=== PATIENT | female | born 1960 | race Caucasian/White ===

== ENCOUNTER 2016-10-11 08:42 | Inpatient (IN) | payer BC ==
[~2016-10-11] VITALS: Ht 149.9 cm; Wt 57.3 kg
[2016-10-11 09:35] LABS: Hematocrit 36.8 % (36.0-46.0); Hemoglobin 12.4 g/dL (12.2-16.2); Mean Corpuscular Hemoglobin 33.8 pg (28.0-32.0); Mean Corpuscular Hgb Conc. 33.7 g/dL (32.0-36.0); Mean Corpuscular Volume 100.2 fL (80.0-100.0); Mean Platelet Volume 7.8 fL (7.4-10.4); Platelet Count (auto) 206 10^3/uL (140-450); Red Cell Distribution Width 13.6 % (11.6-16.0); SUSPECT VIEW TRANSMISSION; White Blood Cell 11.3 10^3/uL (4.4-10.8)
[2016-10-11 09:47] LABS: Metamyelocytes % 0; Myelocytes % 0; Promyelocytes % 0; Reactive Lymphocytes 0
[2016-10-11 09:58] LABS: Albumin 3.1 g/dL (3.4-5.0); BUN/Creatinine Ratio 17.8; Calcium 8.2 mg/dL (8.5-10.1); Potassium 3.8 mmol/L (3.5-5.1); Total Protein 7.2 g/dL (6.4-8.2)
[2016-10-11 10:12] LABS: Partial Thromboplastin Time 26.1 sec (22.64-33.71); Prothrombin Time 11.9 sec (9.37-12.3)
[2016-10-11 10:13] LABS: INR 1.16 (0.9-1.15)
[2016-10-11] MEDS ORDERED: PANTOPRAZOLE SODIUM 40 MG/10 ML VIAL IV ONE (10:15)
[2016-10-11] MEDS ORDERED: ASPirin 81 mg TAB PO ONE (10:15)
[2016-10-11 10:43] LABS: Platelet Estimate Adequate
[2016-10-11] MEDS ORDERED: DEXTROSE (50%) 50ML SYRG IV PRN (13:15)
[2016-10-11] MEDS ORDERED: cefTRIAXone 1GM/50ML D5W 50 ML IV ONE (13:30)
[2016-10-11] MEDS ORDERED: TEMAZEPAM 15 MG CAP PO PRN (13:30)
[2016-10-11] MEDS ORDERED: ACETAMINOPHEN 325 MG TAB PO PRN (13:30)
[2016-10-11] MEDS ORDERED: NITROGLYCERIN 0.4 MG SL TAB SL PRN (13:30)
[2016-10-11] MEDS ORDERED: MORPHINE SULF INJ 2 MG/ML SYRINGE 1ML IV PRN (13:30)
[2016-10-11] MEDS ORDERED: ONDANSETRON HCL 4 MG/2 ML VIAL IV PRN (13:30)
[2016-10-11] MEDS: SODIUM CHLORIDE 0.9% 1,000 ML IV SCH ×2 (13:43→22:29)
[2016-10-11] MEDS: metroNIDAZOLE 500MG/100ML 100 ML IV SCH ×2 (14:02→22:29)
[2016-10-11 14:33] LABS: Urine Color Yellow (Yellow); Urine Glucose Normal (Normal); Urine Mucus FEW (None Seen); Urine Nitrite Negative (Negative); Urine RBC <1 /hpf (0 - 4); Urine Squamous Epithelial Cell MOD /hpf (<5)
[2016-10-11 14:35] LABS: Urine Blood 1+ /uL (Negative); Urine Ketone 1+ (Negative)
[2016-10-11 14:36] LABS: Urine Bilirubin Negative (Negative)
[2016-10-11] MEDS: ACCU-CHEK COMFORT CURVE STRIP VI SCH ×2 (17:00→22:00)
[2016-10-11] MEDS: InsuLIN REG 1unit/0.01ml Soln (100units/ml) SC SCH ×2 (17:00→22:00)
[2016-10-11] MEDS: Boost Glucose Control 8 Ounces PO SCH (18:00)
[2016-10-11] MEDS ORDERED: ASPI81CH43 PO (19:02)
[2016-10-11] MEDS ORDERED: ESTR0.3T PO (19:02)
[2016-10-11] MEDS ORDERED: CHOL500023 PO (19:02)
[2016-10-11] MEDS ORDERED: METO25TA62 PO (19:02)
[2016-10-11] MEDS ORDERED: CYAN1TAB14 PO (19:02)
[2016-10-11 22:00] VITALS: BP 121/74
[2016-10-11] MEDS: FAMOTIDINE 20 MG TAB PO SCH (22:29)
[2016-10-11] MEDS: ATORVASTATIN 20 MG TAB PO SCH (22:29)
[2016-10-12 04:46] VITALS: BP 110/51
[2016-10-12] MEDS: metroNIDAZOLE 500MG/100ML 100 ML IV SCH ×3 (05:11→21:37)
[2016-10-12] MEDS: SODIUM CHLORIDE 0.9% 1,000 ML IV SCH ×3 (05:12→22:56)
[2016-10-12] MEDS: ACCU-CHEK COMFORT CURVE STRIP VI SCH ×4 (06:10→21:56)
[2016-10-12] MEDS: InsuLIN REG 1unit/0.01ml Soln (100units/ml) SC SCH ×4 (06:10→21:56)
[2016-10-12 06:14] LABS: Basophils # (auto) 0 uL; Basophils % (auto) 0.2 % (0.0-2.0); Eosinophils # (auto) 0 uL; Eosinophils % (auto) 0.3 % (0.0-7.0); Hematocrit 35.3 % (36.0-46.0); Hemoglobin 11.9 g/dL (12.2-16.2); Lymphocytes # (auto) 1.3 uL; Lymphocytes % (auto) 13.5 % (10.0-50.0); Mean Corpuscular Hemoglobin 33.5 pg (28.0-32.0); Mean Corpuscular Hgb Conc. 33.6 g/dL (32.0-36.0); Mean Corpuscular Volume 99.6 fL (80.0-100.0); Mean Platelet Volume 7.9 fL (7.4-10.4); Monocytes # (auto) 0.3 uL; Monocytes % (auto) 3.6 % (0.0-12.0); Neutrophils # (auto) 7.6 uL; Neutrophils % (auto) 82.4 % (37.0-80.0); Platelet Count (auto) 188 10^3/uL (140-450); Red Cell Distribution Width 13.6 % (11.6-16.0); White Blood Cell 9.3 10^3/uL (4.4-10.8)
[2016-10-12 06:41] LABS: Alkaline Phosphatase 66 U/L (45-117); Anion Gap 17 (5-15); Aspartate Aminotransferase 45 U/L (15-37); BUN/Creatinine Ratio 19.9; Bilirubin, Total 0.7 mg/dL (0.2-1.0); Blood Urea Nitrogen 28 mg/dL (7-18); Carbon Dioxide 22 mmol/L (21-32); Chloride 103 mmol/L (98-107); GFR African American 49 mL/min; GFR Non-African American 41 mL/min; Glucose 119 mg/dL (74-106); Potassium 3.3 mmol/L (3.5-5.1); Sodium 142 mmol/L (136-145); Total Protein 7.1 g/dL (6.4-8.2)
[2016-10-12] MEDS: Boost Glucose Control 8 Ounces PO SCH ×3 (08:00→18:15)
[2016-10-12] MEDS: cefTRIAXone 1GM/50ML D5W 50 ML IV SCH (08:41)
[2016-10-12 09:00] VITALS: BP 106/56
[2016-10-12] MEDS: FAMOTIDINE 20 MG TAB PO SCH ×2 (09:22→21:38)
[2016-10-12] MEDS: MULTIPLE VITAMIN TAB PO SCH (09:22)
[2016-10-12] MEDS: ASPirin-EC 81 mg tab PO SCH (09:22)
[2016-10-12] MEDS: MORPHINE SULF INJ 2 MG/ML SYRINGE 1ML IV PRN (09:26)
[2016-10-12 13:00] VITALS: BP 129/79
[2016-10-12 17:00] VITALS: BP 131/71
[2016-10-12] MEDS: ATORVASTATIN 20 MG TAB PO SCH (21:37)
[2016-10-12 22:00] VITALS: BP 126/81
[2016-10-13] MEDS: ACCU-CHEK COMFORT CURVE STRIP VI SCH ×4 (05:03→22:36)
[2016-10-13] MEDS: InsuLIN REG 1unit/0.01ml Soln (100units/ml) SC SCH ×4 (05:03→22:00)
[2016-10-13] MEDS: metroNIDAZOLE 500MG/100ML 100 ML IV SCH ×3 (05:04→22:35)
[2016-10-13] MEDS: SODIUM CHLORIDE 0.9% 1,000 ML IV SCH ×3 (05:05→19:56)
[2016-10-13 05:42] VITALS: BP 139/87
[2016-10-13 06:21] LABS: Basophils # (auto) 0 uL; Basophils % (auto) 0.3 % (0.0-2.0); Eosinophils # (auto) 0.1 uL; Eosinophils % (auto) 0.8 % (0.0-7.0); Hematocrit 30.7 % (36.0-46.0); Hemoglobin 10.3 g/dL (12.2-16.2); Lymphocytes # (auto) 0.9 uL; Lymphocytes % (auto) 11.1 % (10.0-50.0); Mean Corpuscular Hemoglobin 33.8 pg (28.0-32.0); Mean Corpuscular Hgb Conc. 33.6 g/dL (32.0-36.0); Mean Corpuscular Volume 100.6 fL (80.0-100.0); Mean Platelet Volume 8.3 fL (7.4-10.4); Monocytes # (auto) 0.5 uL; Monocytes % (auto) 5.5 % (0.0-12.0); Neutrophils # (auto) 6.7 uL; Neutrophils % (auto) 82.3 % (37.0-80.0); Platelet Count (auto) 160 10^3/uL (140-450); Red Cell Distribution Width 13.4 % (11.6-16.0); White Blood Cell 8.1 10^3/uL (4.4-10.8)
[2016-10-13 06:42] LABS: Albumin 2.5 g/dL (3.4-5.0); Anion Gap 13 (5-15); Blood Urea Nitrogen 12 mg/dL (7-18); Calcium 7.5 mg/dL (8.5-10.1); Carbon Dioxide 23 mmol/L (21-32); Chloride 103 mmol/L (98-107); Glucose 98 mg/dL (74-106); Sodium 139 mmol/L (136-145)
[2016-10-13 06:44] LABS: Aspartate Aminotransferase 38 U/L (15-37); BUN/Creatinine Ratio 12.9; GFR African American 80 mL/min; GFR Non-African American 66 mL/min
[2016-10-13 06:49] LABS: Alkaline Phosphatase 59 U/L (45-117); Bilirubin, Total 0.9 mg/dL (0.2-1.0); Total Protein 5.9 g/dL (6.4-8.2)
[2016-10-13 06:56] LABS: Potassium 2.8 mmol/L (3.5-5.1)
[2016-10-13 08:00] VITALS: BP 130/91
[2016-10-13] MEDS: Boost Glucose Control 8 Ounces PO SCH ×3 (08:00→18:15)
[2016-10-13 08:30] VITALS: BP 130/95
[2016-10-13] MEDS: cefTRIAXone 1GM/50ML D5W 50 ML IV SCH ×2 (09:00→19:52)
[2016-10-13] MEDS ORDERED: ADENOSINE 45 MG in GIVE UN-DILUTED 0 ML IV ONE (09:45)
[2016-10-13] MEDS: MULTIPLE VITAMIN TAB PO SCH (10:00)
[2016-10-13] MEDS: FAMOTIDINE 20 MG TAB PO SCH ×2 (10:00→22:35)
[2016-10-13] MEDS: ASPirin-EC 81 mg tab PO SCH (10:00)
[2016-10-13] MEDS ORDERED: POTASSIUM CHLORIDE 40 MEQ, LIDOCAINE 1% (LOCAL ANESTH.) 4 ML in SODIUM CHL 0.9% 250 ML IV ONE (10:30)
[2016-10-13 12:43] VITALS: BP 150/84
[2016-10-13 17:09] VITALS: BP 132/62
[2016-10-13 22:11] VITALS: BP 129/65
[2016-10-13] MEDS: ATORVASTATIN 20 MG TAB PO SCH (22:35)
[2016-10-14] MEDS ORDERED: guaiFENesin-DEXTROMETHORPHAN 5ML SYR PO PRN (00:45)
[2016-10-14 05:11] VITALS: BP 105/59
[2016-10-14] MEDS: ACCU-CHEK COMFORT CURVE STRIP VI SCH ×4 (05:40→21:58)
[2016-10-14] MEDS: InsuLIN REG 1unit/0.01ml Soln (100units/ml) SC SCH ×4 (05:40→22:00)
[2016-10-14] MEDS: metroNIDAZOLE 500MG/100ML 100 ML IV SCH ×3 (05:41→21:58)
[2016-10-14 06:47] LABS: Basophils # (auto) 0 uL; Basophils % (auto) 0.2 % (0.0-2.0); Eosinophils # (auto) 0.2 uL; Eosinophils % (auto) 2.3 % (0.0-7.0); Hematocrit 29.7 % (36.0-46.0); Hemoglobin 10.4 g/dL (12.2-16.2); Lymphocytes # (auto) 1.1 uL; Lymphocytes % (auto) 15.7 % (10.0-50.0); Mean Corpuscular Hemoglobin 35.1 pg (28.0-32.0); Mean Corpuscular Volume 100.5 fL (80.0-100.0); Mean Platelet Volume 8.4 fL (7.4-10.4); Monocytes # (auto) 0.9 uL; Monocytes % (auto) 11.8 % (0.0-12.0); Neutrophils # (auto) 5.1 uL; Platelet Count (auto) 169 10^3/uL (140-450); Red Cell Distribution Width 13.4 % (11.6-16.0); White Blood Cell 7.3 10^3/uL (4.4-10.8)
[2016-10-14 07:13] LABS: Albumin 2.3 g/dL (3.4-5.0); BUN/Creatinine Ratio 9.9; Calcium 7.1 mg/dL (8.5-10.1)
[2016-10-14 07:15] LABS: Bilirubin, Total 0.6 mg/dL (0.2-1.0); Total Protein 5.4 g/dL (6.4-8.2)
[2016-10-14 07:25] LABS: Potassium 2.7 mmol/L (3.5-5.1)
[2016-10-14 08:00] VITALS: BP 113/51
[2016-10-14] MEDS: Boost Glucose Control 8 Ounces PO SCH ×3 (08:00→18:21)
[2016-10-14] MEDS: SODIUM CHLORIDE 0.9% 1,000 ML IV SCH ×2 (08:02→20:00)
[2016-10-14 08:43] VITALS: BP 113/51
[2016-10-14] MEDS: cefTRIAXone 1GM/50ML D5W 50 ML IV SCH (09:00)
[2016-10-14] MEDS: ASPirin-EC 81 mg tab PO SCH (10:04)
[2016-10-14] MEDS: MULTIPLE VITAMIN TAB PO SCH (10:04)
[2016-10-14] MEDS: FAMOTIDINE 20 MG TAB PO SCH ×2 (10:04→21:58)
[2016-10-14] MEDS ORDERED: POTASSIUM CHLORIDE 40 MEQ, LIDOCAINE 1% (LOCAL ANESTH.) 4 ML in SODIUM CHL 0.9% 250 ML IV ONE (10:45)
[2016-10-14 11:23] VITALS: BP 127/59
[2016-10-14 16:22] VITALS: BP 117/62
[2016-10-14 21:46] VITALS: BP 129/69
[2016-10-14] MEDS: ATORVASTATIN 20 MG TAB PO SCH (21:58)
[2016-10-15] MEDS: SODIUM CHLORIDE 0.9% 1,000 ML IV SCH ×2 (04:35→17:51)
[2016-10-15 04:36] VITALS: BP 116/67
[2016-10-15] MEDS: InsuLIN REG 1unit/0.01ml Soln (100units/ml) SC SCH ×4 (06:22→22:11)
[2016-10-15] MEDS: metroNIDAZOLE 500MG/100ML 100 ML IV SCH ×3 (06:22→21:56)
[2016-10-15] MEDS: ACCU-CHEK COMFORT CURVE STRIP VI SCH ×4 (06:22→22:13)
[2016-10-15 06:43] LABS: Hematocrit 28.7 % (36.0-46.0); Hemoglobin 9.7 g/dL (12.2-16.2)
[2016-10-15 06:49] LABS: Partial Thromboplastin Time 26.5 sec (22.64-33.71); Prothrombin Time 12.2 sec (9.37-12.3)
[2016-10-15 07:02] LABS: BUN/Creatinine Ratio 5.5; Calcium 7.5 mg/dL (8.5-10.1); Potassium 3.3 mmol/L (3.5-5.1)
[2016-10-15 07:07] LABS: INR 1.18 (0.9-1.15)
[2016-10-15 08:00] VITALS: BP 133/65
[2016-10-15] MEDS ORDERED: SODIUM CHLORIDE LOCK 10 ML ONE (08:18)
[2016-10-15] MEDS ORDERED: diphenhdrAMINE HCL 50 MG/1 ML VL ONE (08:19)
[2016-10-15] MEDS ORDERED: fentaNYL CITRATE 100 MCG/2 ML VL ONE (08:19)
[2016-10-15] MEDS ORDERED: LIDOCAINE VISCOUS 2% 15ML UD ONE (08:19)
[2016-10-15] MEDS ORDERED: MIDAZOLAM HCL 5 MG/ML-1ML VIAL ONE (08:19)
[2016-10-15 08:43] VITALS: BP 133/65
[2016-10-15] MEDS: Boost Glucose Control 8 Ounces PO SCH ×2 (08:46→12:00)
[2016-10-15] MEDS: ASPirin-EC 81 mg tab PO SCH (08:46)
[2016-10-15] MEDS: cefTRIAXone 1GM/50ML D5W 50 ML IV SCH (08:46)
[2016-10-15] MEDS: MULTIPLE VITAMIN TAB PO SCH (08:46)
[2016-10-15] MEDS: FAMOTIDINE 20 MG TAB PO SCH (08:47)
[2016-10-15] MEDS: HYDROcodone-ACET 5/325MG TAB PO PRN ×2 (10:51→20:10)
[2016-10-15 13:24] VITALS: BP 113/75
[2016-10-15] MEDS ORDERED: LIDOCAINE VISCOUS 2% 15ML UD MT ONE (16:18)
[2016-10-15] MEDS ORDERED: fentaNYL CITRATE 100 MCG/2 ML VL IV ONE ×2 (16:21→16:23)
[2016-10-15] MEDS ORDERED: MIDAZOLAM HCL 5 MG/ML-1ML VIAL IV ONE ×4 (16:21→16:27)
[2016-10-15] MEDS: SUCRALFATE 1 GM/10 ML ORAL SUSP PO SCH ×2 (17:50→21:56)
[2016-10-15] MEDS: Boost Breeze 8 Ounces PO SCH (17:51)
[2016-10-15] MEDS: ATORVASTATIN 20 MG TAB PO SCH (21:56)
[2016-10-15] MEDS: PANTOPRAZOLE SODIUM 40 MG/10 ML VIAL IV SCH (21:56)
[2016-10-15 22:16] VITALS: BP 115/78
[2016-10-16] MEDS: MORPHINE SULF INJ 2 MG/ML SYRINGE 1ML IV PRN ×2 (04:26→18:19)
[2016-10-16] MEDS: SODIUM CHLORIDE 0.9% 1,000 ML IV SCH (04:39)
[2016-10-16 05:00] VITALS: BP 122/72
[2016-10-16] MEDS: SUCRALFATE 1 GM/10 ML ORAL SUSP PO SCH ×4 (06:03→21:34)
[2016-10-16] MEDS: metroNIDAZOLE 500MG/100ML 100 ML IV SCH (06:04)
[2016-10-16 06:10] LABS: Hematocrit 31.5 % (36.0-46.0); Mean Corpuscular Hemoglobin 35.5 pg (28.0-32.0); Mean Corpuscular Volume 101.4 fL (80.0-100.0); Mean Platelet Volume 8.5 fL (7.4-10.4); Platelet Count (auto) 340 10^3/uL (140-450); Red Cell Distribution Width 13.5 % (11.6-16.0); SUSPECT VIEW TRANSMISSION; White Blood Cell 5.4 10^3/uL (4.4-10.8)
[2016-10-16] MEDS: ACCU-CHEK COMFORT CURVE STRIP VI SCH ×2 (06:19→13:34)
[2016-10-16] MEDS: InsuLIN REG 1unit/0.01ml Soln (100units/ml) SC SCH ×2 (06:22→11:30)
[2016-10-16 06:23] LABS: BUN/Creatinine Ratio 6.3; Calcium 7.5 mg/dL (8.5-10.1); Magnesium 1.1 mg/dL (1.6-2.6)
[2016-10-16 06:24] LABS: Metamyelocytes % 0; Myelocytes % 0; Promyelocytes % 0; Reactive Lymphocytes 0
[2016-10-16 06:37] LABS: Potassium 2.9 mmol/L (3.5-5.1)
[2016-10-16 06:56] LABS: INR 1.17 (0.9-1.15)
[2016-10-16 07:52] LABS: Platelet Estimate Adequate
[2016-10-16 07:53] LABS: Macrocytosis Slight
[2016-10-16 08:00] VITALS: BP 128/80
[2016-10-16] MEDS: MULTIPLE VITAMIN TAB PO SCH (09:28)
[2016-10-16] MEDS: PANTOPRAZOLE SODIUM 40 MG/10 ML VIAL IV SCH (09:29)
[2016-10-16] MEDS: cefTRIAXone 1GM/50ML D5W 50 ML IV SCH (09:29)
[2016-10-16] MEDS: Boost Breeze 8 Ounces PO SCH ×3 (09:29→18:19)
[2016-10-16 09:59] VITALS: BP 128/80
[2016-10-16] MEDS ORDERED: POTASSIUM CHL 20 Meq TABLET PO ONE (12:45)
[2016-10-16] MEDS ORDERED: POTASSIUM CHLORIDE 40 MEQ, LIDOCAINE 1% (LOCAL ANESTH.) 4 ML in SODIUM CHL 0.9% 250 ML IV ONE (13:15)
[2016-10-16] MEDS: MAGNESIUM SULFATE 1GM/100ML 100 ML IV SCH ×4 (13:35→18:18)
[2016-10-16 14:56] VITALS: BP 126/77
[2016-10-16 15:01] LABS: Albumin 2.2 g/dL (3.4-5.0)
[2016-10-16 15:03] LABS: Bilirubin, Total 0.3 mg/dL (0.2-1.0); Total Protein 5.4 g/dL (6.4-8.2)
[2016-10-16] MEDS ORDERED: METOPROLOL TARTRATE 25 MG TAB PO ONE (15:15)
[2016-10-16 15:18] LABS: Bilirubin, Direct 0.2 mg/dL (0-0.2)
[2016-10-16 17:23] VITALS: BP 150/76
[2016-10-16 21:30] VITALS: BP 151/89
[2016-10-16] MEDS: ATORVASTATIN 20 MG TAB PO SCH (21:34)
[2016-10-16] MEDS: PANTOPRAZOLE 40 MG TAB PO SCH (21:35)
[2016-10-16] MEDS: METOPROLOL TARTRATE 25 MG TAB PO SCH (21:35)
[2016-10-17 05:00] VITALS: BP 145/78
[2016-10-17] MEDS: SUCRALFATE 1 GM/10 ML ORAL SUSP PO SCH ×2 (06:33→12:37)
[2016-10-17 06:48] LABS: BUN/Creatinine Ratio 3.1; Calcium 7.7 mg/dL (8.5-10.1); Magnesium 1.9 mg/dL (1.6-2.6); Potassium 3.4 mmol/L (3.5-5.1)
[2016-10-17 08:00] VITALS: BP 115/64
[2016-10-17 10:00] VITALS: BP 115/64
[2016-10-17] MEDS: Boost Breeze 8 Ounces PO SCH ×2 (10:28→12:37)
[2016-10-17] MEDS: METOPROLOL TARTRATE 25 MG TAB PO SCH (10:28)
[2016-10-17] MEDS: MULTIPLE VITAMIN TAB PO SCH (10:29)
[2016-10-17] MEDS: PANTOPRAZOLE 40 MG TAB PO SCH (10:29)
[2016-10-17] MEDS ORDERED: PANT40T PO (11:15)
[2016-10-17] MEDS ORDERED: SUC1LQ PO (11:15)
[2016-10-17 12:23] VITALS: BP 131/67
[2016-10-17 14:18] VITALS: BP 131/67
== END 2016-10-17 14:46 | disposition home or self-care (01) | DRG 391 ==
LOC: EDBD 08:42 → ER 08:42 → TELE 08:43 → TELE-E-ADS 15:06 → TELE-EAST 20:23
PROVIDERS: ADMIT Internal Medicine; ATTEND Internal Medicine
PROC: 0DB58ZX Excision of Esophagus, Via Natural or Artificial Opening Endoscopic, Diagnostic (ICD-10-PCS; principal; 2016-10-15 16:13)
DX: K20.9 Esophagitis, unspecified (principal); N17.0 Acute kidney failure with tubular necrosis; E44.0 Moderate protein-calorie malnutrition; I24.9 Acute ischemic heart disease, unspecified; N18.4 Chronic kidney disease, stage 4 (severe); R07.89 Other chest pain; I25.10 Atherosclerotic heart disease of native coronary artery without angina pectoris; E87.6 Hypokalemia; E83.51 Hypocalcemia; K29.60 Other gastritis without bleeding; E83.42 Hypomagnesemia; K29.80 Duodenitis without bleeding; K44.9 Diaphragmatic hernia without obstruction or gangrene; F14.10 Cocaine abuse, uncomplicated; K76.0 Fatty (change of) liver, not elsewhere classified; I12.9 Hypertensive chronic kidney disease with stage 1 through stage 4 chronic kidney disease, or unspecified chronic kidney disease; E86.0 Dehydration; Z90.49 Acquired absence of other specified parts of digestive tract; Z90.710 Acquired absence of both cervix and uterus; I25.2 Old myocardial infarction; Z83.3 Family history of diabetes mellitus; Z82.49 Family history of ischemic heart disease and other diseases of the circulatory system; Z80.0 Family history of malignant neoplasm of digestive organs; Z68.25 Body mass index [BMI] 25.0-25.9, adult
CPT/HCPCS: 36415; 71010; 74176; 76700; 80048; 80053; 80061; 80076; 81001; 82962; 83036; 83735; 84132; 84484; 85007; 85014; 85018; 85025; 85027; 85610; 85730; 87040; 87045; 87086; 87493; 87899; 93005; 93017; 94761; 96365; 96375; C9113; G0434; J0153; J0696; J1815; J2001; J2250; J3490

== ENCOUNTER 2017-04-14 07:29 | Inpatient (IN) | payer BC ==
[~2017-04-14] VITALS: Ht 149.9 cm; Wt 51.1 kg
[~2017-04-14 07:29] MED LIST: CHOL500023 PO; CYAN1TAB14 PO; ESTR0.3T PO; METO25TA62 PO; PANT40T PO; SUC1LQ PO
[2017-04-14] MEDS ORDERED: SODIUM CHLORIDE 0.9% 1,000 ML IV ONE (07:41)
[2017-04-14] MEDS ORDERED: PANTOPRAZOLE 40 MG/10 ML VIAL IV ONE (08:00)
[2017-04-14 08:43] LABS: Basophils # (auto) 0 uL; Basophils % (auto) 0.3 % (0.0-2.0); Eosinophils # (auto) 0 uL; Eosinophils % (auto) 0.1 % (0.0-7.0); Hematocrit 29.1 % (36.0-46.0); Hemoglobin 9.7 g/dL (12.2-16.2); Lymphocytes # (auto) 1.2 uL; Lymphocytes % (auto) 8.9 % (10.0-50.0); Mean Corpuscular Hemoglobin 29.2 pg (28.0-32.0); Mean Corpuscular Hgb Conc. 33.2 g/dL (32.0-36.0); Mean Corpuscular Volume 87.8 fL (80.0-100.0); Mean Platelet Volume 7.8 fL (6.9-10.8); Monocytes # (auto) 0.3 uL; Monocytes % (auto) 2.5 % (0.0-12.0); Neutrophils # (auto) 12.1 uL; Neutrophils % (auto) 88.2 % (37.0-80.0); Platelet Count (auto) 298 10^3/uL (140-450); Red Cell Distribution Width 13.9 % (11.8-14.3); White Blood Cell 13.7 10^3/uL (4.4-10.8)
[2017-04-14] MEDS ORDERED: cefTRIAXone 1GM/50ML D5W 50 ML IV ONE (09:00)
[2017-04-14] MEDS ORDERED: metroNIDAZOLE 500MG/100ML 100 ML IV ONE (09:00)
[2017-04-14 09:02] LABS: Albumin 3.3 g/dL (3.4-5.0); BUN/Creatinine Ratio 22.2; Bilirubin, Total 0.5 mg/dL (0.2-1.0); Calcium 8.4 mg/dL (8.5-10.1); Potassium 4.2 mmol/L (3.5-5.1); Total Protein 6.8 g/dL (6.4-8.2)
[2017-04-14] MEDS: SODIUM CHLORIDE 0.9% 1,000 ML IV SCH ×2 (09:03→17:23)
[2017-04-14 09:06] LABS: INR 0.95 (0.9-1.15); Partial Thromboplastin Time 23.5 sec (22.64-33.71); Prothrombin Time 10.4 sec (9.37-12.3)
[2017-04-14] MEDS ORDERED: ONDANSETRON HCL 4 MG/2 ML VIAL IV ONE (09:15)
[2017-04-14] MEDS ORDERED: ACETAMINOPHEN 500 MG TAB PO PRN (09:15)
[2017-04-14] MEDS ORDERED: MORPHINE SULF INJ 2 MG/ML SYRINGE 1ML IV ONE (09:15)
[2017-04-14] MEDS ORDERED: PROMETHAZINE HCL 25 MG/ML 1ML IV PRN (09:15)
[2017-04-14] MEDS ORDERED: TEMAZEPAM 15 MG CAP PO PRN (09:15)
[2017-04-14] MEDS ORDERED: NITROGLYCERIN 0.4 MG SL TAB SL PRN (09:15)
[2017-04-14] MEDS ORDERED: MORPHINE SULF INJ 2 MG/ML SYRINGE 1ML IV PRN ×2 (09:15)
[2017-04-14] MEDS ORDERED: LORazepam 0.5 MG TAB PO PRN (09:15)
[2017-04-14] MEDS: FAMOTIDINE 20 MG TAB PO SCH ×2 (10:00→21:46)
[2017-04-14 10:08] VITALS: BP 131/77
[2017-04-14] MEDS: metroNIDAZOLE 500MG/100ML 100 ML IV SCH ×2 (12:00→18:00)
[2017-04-14 12:52] VITALS: BP 121/90
[2017-04-14 13:46] LABS: Hematocrit 25.9 % (36.0-46.0); Hemoglobin 8.7 g/dL (12.2-16.2)
[2017-04-14 16:47] VITALS: BP 104/67
[2017-04-14 18:35] LABS: Hematocrit 24.4 % (36.0-46.0); Hemoglobin 8.2 g/dL (12.2-16.2)
[2017-04-14 20:00] VITALS: BP 92/62
[2017-04-14 21:30] VITALS: BP 109/61
[2017-04-14] MEDS: HYDROcodone-ACET 5/325MG TAB PO PRN (21:55)
[2017-04-15] MEDS: metroNIDAZOLE 500MG/100ML 100 ML IV SCH ×5 (00:37→23:03)
[2017-04-15 00:51] LABS: Hematocrit 23.9 % (36.0-46.0); Hemoglobin 8.1 g/dL (12.2-16.2)
[2017-04-15] MEDS: SODIUM CHLORIDE 0.9% 1,000 ML IV SCH ×3 (00:58→15:34)
[2017-04-15 05:00] VITALS: BP 108/61
[2017-04-15] MEDS: HYDROcodone-ACET 5/325MG TAB PO PRN ×2 (06:45→21:34)
[2017-04-15 06:48] LABS: Basophils # (auto) 0.1 uL; Basophils % (auto) 0.9 % (0.0-2.0); Eosinophils # (auto) 0.1 uL; Eosinophils % (auto) 2.3 % (0.0-7.0); Hematocrit 23.2 % (36.0-46.0); Hemoglobin 7.9 g/dL (12.2-16.2); Lymphocytes # (auto) 1.7 uL; Lymphocytes % (auto) 27.1 % (10.0-50.0); Mean Corpuscular Hemoglobin 30.1 pg (28.0-32.0); Mean Corpuscular Volume 88.5 fL (80.0-100.0); Mean Platelet Volume 7.7 fL (6.9-10.8); Monocytes # (auto) 0.3 uL; Monocytes % (auto) 5.1 % (0.0-12.0); Neutrophils % (auto) 64.6 % (37.0-80.0); Platelet Count (auto) 240 10^3/uL (140-450); Red Cell Distribution Width 14.1 % (11.8-14.3); White Blood Cell 6.3 10^3/uL (4.4-10.8)
[2017-04-15 08:00] VITALS: BP 112/62
[2017-04-15] MEDS: cefTRIAXone 1GM/50ML D5W 50 ML IV SCH (08:34)
[2017-04-15] MEDS: FAMOTIDINE 20 MG TAB PO SCH ×2 (09:15→21:33)
[2017-04-15 12:29] VITALS: BP 123/69
[2017-04-15 17:00] VITALS: BP 140/77
[2017-04-15 20:00] VITALS: BP 130/64
[2017-04-15 21:56] VITALS: BP 130/64
[2017-04-16 04:53] VITALS: BP 108/68
[2017-04-16] MEDS: metroNIDAZOLE 500MG/100ML 100 ML IV SCH ×2 (06:11→12:48)
[2017-04-16 06:21] LABS: Basophils # (auto) 0.1 uL; Eosinophils # (auto) 0.2 uL; Eosinophils % (auto) 2.7 % (0.0-7.0); Hematocrit 25.4 % (36.0-46.0); Hemoglobin 8.6 g/dL (12.2-16.2); Lymphocytes # (auto) 2.1 uL; Lymphocytes % (auto) 28.1 % (10.0-50.0); Mean Corpuscular Hgb Conc. 33.8 g/dL (32.0-36.0); Mean Corpuscular Volume 88.8 fL (80.0-100.0); Mean Platelet Volume 7.6 fL (6.9-10.8); Monocytes # (auto) 0.4 uL; Monocytes % (auto) 5.7 % (0.0-12.0); Neutrophils # (auto) 4.6 uL; Neutrophils % (auto) 62.5 % (37.0-80.0); Nucleated Red Blood Cells % 0.1 %; Platelet Count (auto) 285 10^3/uL (140-450); White Blood Cell 7.4 10^3/uL (4.4-10.8)
[2017-04-16] MEDS: SODIUM CHLORIDE 0.9% 1,000 ML IV SCH (08:01)
[2017-04-16 09:00] VITALS: BP 123/64
[2017-04-16] MEDS: cefTRIAXone 1GM/50ML D5W 50 ML IV SCH (10:37)
[2017-04-16] MEDS: FAMOTIDINE 20 MG TAB PO SCH (10:37)
[2017-04-16 11:23] LABS: Hematocrit 28.3 % (36.0-46.0); Hemoglobin 9.5 g/dL (12.2-16.2)
[2017-04-16 13:00] VITALS: BP 116/81
[2017-04-16 13:15] VITALS: BP 123/64
== END 2017-04-16 14:45 | disposition home or self-care (01) | DRG 871 ==
LOC: EDUNIT# 07:29 → ER 07:29 → TELE 07:30 → TELE-E-ADS 10:07 → TELE-EAST 12:54
PROVIDERS: ADMIT Internal Medicine; ATTEND Internal Medicine
DX: A41.9 Sepsis, unspecified organism (principal); K57.33 Diverticulitis of large intestine without perforation or abscess with bleeding; E87.1 Hypo-osmolality and hyponatremia; D62 Acute posthemorrhagic anemia; G47.00 Insomnia, unspecified; I10 Essential (primary) hypertension; D63.8 Anemia in other chronic diseases classified elsewhere; I25.10 Atherosclerotic heart disease of native coronary artery without angina pectoris; F41.9 Anxiety disorder, unspecified; Z83.3 Family history of diabetes mellitus; I25.2 Old myocardial infarction; Z82.49 Family history of ischemic heart disease and other diseases of the circulatory system; Z90.49 Acquired absence of other specified parts of digestive tract; Z80.0 Family history of malignant neoplasm of digestive organs; Z79.899 Other long term (current) drug therapy
CPT/HCPCS: 36415; 71010; 74176; 80053; 82270; 83605; 84484; 85014; 85018; 85025; 85045; 85610; 85652; 85730; 86141; 86850; 86900; 86901; 87040; 87493; 96361; 96365; 96366; 96375; C9113; J0696; J3490

== ENCOUNTER 2018-07-26 19:11 | Emergency (ER) | payer SELFPAY ==
[~2018-07-26] VITALS: Ht 160 cm; Wt 59.0 kg
[~2018-07-26 19:11] MED LIST changes: -SUC1LQ PO; +SUCR1SUS10 PO
[2018-07-26 19:25] VITALS: BP 143/66
== END 2018-07-26 21:34 | disposition home or self-care (01) ==
LOC: EDBD 19:11 → EDUNIT# 19:11 → ER 19:22
DX: S16.1XXA Strain of muscle, fascia and tendon at neck level, initial encounter (principal); R51 Headache; M48.02 Spinal stenosis, cervical region; I25.2 Old myocardial infarction; Z90.49 Acquired absence of other specified parts of digestive tract; W19.XXXA Unspecified fall, initial encounter; Y93.89 Activity, other specified; Y99.8 Other external cause status; Y92.89 Other specified places as the place of occurrence of the external cause
CPT/HCPCS: 70450; 72125; 93005

== ENCOUNTER 2019-01-12 14:46 | Inpatient (IN) | payer BC ==
[~2019-01-12] VITALS: Ht 30.5 cm; Wt 49.3 kg
[2019-01-12] MEDS ORDERED: SODIUM CHLORIDE 0.9% 1,000 ML IV ONE (14:57)
[2019-01-12] MEDS ORDERED: NEOMYCIN-BACITRACIN-POLYM 15GM TOP OINT TOP SCH (15:00)
[2019-01-12] MEDS ORDERED: THIAMINE 100mg/ml INJ (200mg/2ml VIAL) IV ONE (15:00)
[2019-01-12] MEDS ORDERED: ACETAMINOPHEN 500 MG TAB PO ONE (15:00)
[2019-01-12] MEDS ORDERED: ONDANSETRON HCL 4 MG/2 ML VIAL IV ONE (15:00)
[2019-01-12] MEDS ORDERED: TETANUS-DIPTH-ACEL PERTUSSIS 0.5ML SYRG IM ONE (15:00)
[2019-01-12 15:25] LABS: Eosinophils # (auto) 0.1 uL; Hemoglobin 13.1 g/dL (12.2-16.2); Monocytes # (auto) 0.5 uL; Neutrophils # (auto) 5.1 uL; Nucleated Red Blood Cells % 0.1 %
[2019-01-12 15:27] LABS: Basophils # (auto) 0.1 uL; Basophils % (auto) 1.2 % (0.0-2.0); Eosinophils % (auto) 0.8 % (0.0-7.0); Hematocrit 38.2 % (36.0-46.0); Lymphocytes # (auto) 1.9 uL; Lymphocytes % (auto) 25.2 % (10.0-50.0); Mean Corpuscular Hemoglobin 37.6 pg (28.0-32.0); Mean Corpuscular Hgb Conc. 34.2 g/dL (32.0-36.0); Monocytes % (auto) 5.9 % (0.0-12.0); Neutrophils % (auto) 66.9 % (37.0-80.0); Platelet Count (auto) 222 10^3/uL (140-450); Red Blood Cells 3.48 10^6/uL (4.0-5.20); Red Cell Distribution Width 15.2 % (11.8-14.3); White Blood Cell 7.7 10^3/uL (4.4-10.8)
[2019-01-12 15:32] LABS: Albumin 2.4 g/dL (3.4-5.0); Calcium 6.9 mg/dL (8.5-10.1)
[2019-01-12 15:44] LABS: Bilirubin, Total 1.9 mg/dL (0.2-1.0); Total Protein 7.2 g/dL (6.4-8.2)
[2019-01-12 15:55] LABS: Potassium 2.7 mmol/L (3.5-5.1)
[2019-01-12 15:57] LABS: BUN/Creatinine Ratio 5.4
[2019-01-12] MEDS ORDERED: POTASSIUM CHL 20 Meq TABLET PO ONE (16:15)
[2019-01-12] MEDS: POTASSIUM CHL 20MEQ/100ML 100 ML IV SCH ×2 (16:38→19:16)
[2019-01-12] MEDS ORDERED: CALCIUM GLUC IV ONE (20:15)
[2019-01-12] MEDS ORDERED: D5W 5% IV ONE (20:15)
[2019-01-12] MEDS ORDERED: D5AE IV ONE (20:15)
[2019-01-12] MEDS ORDERED: ONDANSETRON HCL 4 MG/2 ML VIAL IV PRN (21:15)
[2019-01-12] MEDS ORDERED: CALCIUM GLUC 4.65meq/50ml D5AE 50 ML IV ONE (21:30)
--- NOTE | 2019-01-13 00:15 | NUR ---
Telemetry admit from ROSELIA JOSEPHNICOLLE DAVID admitted to Telemetry unit after SBAR received. Patient oriented to Shannon Zendejas, primary RN, unit, room, bed, and unit policies regarding patient care and visiting hours. Patient now on continuous telemetry monitoring, tele box #5 and telemetry reading on arrival to unit is NSR 77. Pat weighed by bedscale and encouraged to call if they need something. All questions and concerns addressed, patient verbalized understanding. Note:
[2019-01-13] MEDS: TEMAZEPAM 15 MG CAP PO PRN (00:23)
[2019-01-13 00:40] VITALS: BP 137/86
[2019-01-13 04:47] VITALS: BP 105/73
--- NOTE | 2019-01-13 05:52 | NUR ---
ORTHOPEDIC NURSE PRACTITIONER REFERENCE PER NURSING PROTOCOL PLACED BECAUSE PT LIVES BY HERSELF AND IS STATUS POST FALL AT HOME AFTER DRINKING VODKA CONTINOUSLY SINCE 4 AM ON THE DAY SHE WAS ADMITTED.
--- NOTE | 2019-01-13 06:48 | NUR ---
PT AWAKE ALERT ORIENTED X 3;DENIES ANY PAIN OR DISCOMFORT;WILL CONTINUE TO MONITOR.
[2019-01-13 07:07] LABS: Eosinophils # (auto) 0.1 uL; Eosinophils % (auto) 0.7 % (0.0-7.0); Lymphocytes # (auto) 1.2 uL
[2019-01-13 07:12] LABS: Basophils # (auto) 0.1 uL; Basophils % (auto) 1.3 % (0.0-2.0); Hematocrit 35.9 % (36.0-46.0); Hemoglobin 12.2 g/dL (12.2-16.2); Lymphocytes % (auto) 14.9 % (10.0-50.0); Mean Corpuscular Hemoglobin 37.5 pg (28.0-32.0); Mean Corpuscular Hgb Conc. 33.8 g/dL (32.0-36.0); Mean Corpuscular Volume 110.7 fL (80.0-100.0); Monocytes # (auto) 0.5 uL; Monocytes % (auto) 6.3 % (0.0-12.0); Neutrophils % (auto) 76.8 % (37.0-80.0); Nucleated Red Blood Cells % 0.1 %; Platelet Count (auto) 177 10^3/uL (140-450); Red Blood Cells 3.25 10^6/uL (4.0-5.20); Red Cell Distribution Width 15.3 % (11.8-14.3); White Blood Cell 7.8 10^3/uL (4.4-10.8)
[2019-01-13 07:25] LABS: Calcium 6.2 mg/dL (8.5-10.1); Potassium 4.3 mmol/L (3.5-5.1)
[2019-01-13 07:29] LABS: BUN/Creatinine Ratio 6.6
--- NOTE | 2019-01-13 07:30 | NUR ---
Opening Note Assumed care of patient, she is A & O x4, no s/s of distress at this time, the patient is awake and on the phone with family. Call light is within reach. Notified patient that I will return to discuss her POC. Bed is in low, locked position, bed alarm is on. Will continue to monitor Q1h and PRN.
--- NOTE | 2019-01-13 07:58 | NUR ---
Blood Sugar Low per lab value This morning labs, blood glucose is 57, immediately gave patient two apple juices. Patient is non-diabetic and is asymptomatic at this time. Will continue to monitor and notify MD of any symptoms.
[2019-01-13 08:00] VITALS: BP 132/82
[2019-01-13] MEDS: FOLIC ACID 1 MG TAB PO SCH (09:33)
[2019-01-13] MEDS: MULTIPLE VITAMIN TAB PO SCH (09:33)
[2019-01-13] MEDS: chlordiazePOXIDE HCL 25 MG CAP PO PRN ×2 (09:33→19:51)
[2019-01-13] MEDS: PANTOPRAZOLE 40 MG TAB PO SCH (09:33)
[2019-01-13] MEDS: THIAMINE 100mg/ml INJ (200mg/2ml VIAL) IV SCH (09:34)
--- NOTE | 2019-01-13 09:40 | NUR ---
Patient states "I feel shaky" Patient showing s/s of tremors, will medicate per orders. Patient drank juice earlier x2. Patient states "I am depressed, I haven't been able to work because of the weather". Will continue to monitor Q1H and PRN.
[2019-01-13 10:18] LABS: Urine Bacteria NONE SEEN /hpf (None Seen); Urine Blood TRACE /uL (Negative); Urine Specific Gravity 1.015 (1.001-1.035); Urine WBC 95 /hpf (0 - 5); Urine WBC Clumps PRESENT /hpf (None Seen)
[2019-01-13 10:20] LABS: Amphetamine Screen, Urine NEGATIVE (NEGATIVE); Barbiturate Scree,Urine NEGATIVE (NEGATIVE); Benzodiazephine Screen, Urine POSITIVE (NEGATIVE); Cannabinoid Screen, Urine NEGATIVE (NEGATIVE); Cocaine Screen, Urine NEGATIVE (NEGATIVE); Opiate Scree,Urine NEGATIVE (NEGATIVE); Phencyclidine Screen, Urine NEGATIVE (NEGATIVE)
--- NOTE | 2019-01-13 13:02 | NUR ---
Paged Dr. Colon Patient is having tremors, she states "I don't feel well," she is refusing to eat. Patient has had two loose stools, will get a sample of the next stool if it is loose. Will await orders.
[2019-01-13 13:06] VITALS: BP 126/85
--- NOTE | 2019-01-13 13:09 | NUR ---
Spoke to Dr. Colon Received orders regarding tremors, will follow per protocol.
[2019-01-13] MEDS: LORazepam 2MG/ML-1ML VIAL IV PRN ×2 (13:19→19:52)
--- NOTE | 2019-01-13 13:40 | NUR ---
IV to the left AC leaking New IV started to the right AC 20G, patent, intact. Left AC IV discontinue, IV catheter intact, pressure dressing applied.
[2019-01-13] MEDS ORDERED: cefTRIAXone 1GM/50ML D5W 50 ML IV ONE (13:45)
[2019-01-13] MEDS ORDERED: SODIUM CHLORIDE 0.9% 1,000 ML IV ONE ×2 (13:45)
[2019-01-13 17:11] VITALS: BP 117/65
--- NOTE | 2019-01-13 19:35 | NUR ---
Opening Shift Note Assumed care of patient, awake and alert x4. No S/S of distress/SOB or pain. Instructed on POC and to call for assistance PRN, will continue to monitor for changes Q1hr and PRN. Seizure precautions placed
[2019-01-13 22:00] VITALS: BP 117/77
[2019-01-14] MEDS: chlordiazePOXIDE HCL 25 MG CAP PO PRN ×2 (04:45→11:32)
[2019-01-14] MEDS: LORazepam 2MG/ML-1ML VIAL IV PRN ×2 (04:46→10:32)
[2019-01-14 05:00] VITALS: BP 104/65
--- NOTE | 2019-01-14 07:30 | NUR ---
Opening Note Patient is A & O x4, patient is having a hard time following simple tasks. She has generalized weakness and is not able to get up to the bedside commode safely or with moderate assistance. Will use bedpan today. Patient states "I am ready to go home," she attempted to feed herself this morning. No s/s of distress. Bed is in low, locked position, bed alarm is on, will continue to monitor Q1h and PRN.
[2019-01-14 09:00] VITALS: BP 114/80
[2019-01-14] MEDS: MULTIPLE VITAMIN TAB PO SCH (09:41)
[2019-01-14] MEDS: PANTOPRAZOLE 40 MG TAB PO SCH (09:41)
[2019-01-14] MEDS: cefTRIAXone 1GM/50ML D5W 50 ML IV SCH (09:41)
[2019-01-14] MEDS: FOLIC ACID 1 MG TAB PO SCH (09:42)
[2019-01-14] MEDS: THIAMINE 100mg/ml INJ (200mg/2ml VIAL) IV SCH (09:42)
--- NOTE | 2019-01-14 10:20 | NUR ---
Paged Dr. Colon Patient heart rate acute increase to 214 bpm, patient is lying still at this time. Placed patient on 2 L O2 nasal cannula. Received orders, read back, and verified.
[2019-01-14] MEDS ORDERED: METOPROLOL TARTRATE 1MG/1ML-5ML VIAL IV ONE (10:30)
[2019-01-14] MEDS ORDERED: SODIUM CHLORIDE 0.9% 500 ML IV ONE ×2 (10:30→11:15)
--- NOTE | 2019-01-14 10:45 | NUR ---
EKG Done at bedside Dr. Colon notified of results. Patient BP is 98/79, HR 170, O2 97, RR 32. No s/s of distress at this time, patient is requesting to use the bathroom.
[2019-01-14] MEDS ORDERED: AMIODARONE HCL 150 MG in D5W 5% 100 ML IV ONE (11:30)
[2019-01-14] MEDS ORDERED: AMIODARONE HCL 900 MG in DEXTROSE 500 ML IV SCH (11:32)
--- NOTE | 2019-01-14 11:50 | NUR ---
Report Given to GILMA England in [facility]. Patient going to room 61.
--- NOTE | 2019-01-14 12:10 | NUR ---
RECEIVED PATIENT FROM THE TELE FLOOR BY THE BED, A/O TIMES 3, BUT SLOW WITH HER RESPONSE, NS CONNECTED TO A IV PUMP AT FOR 500ML BOLUS, MOVES IN THE BED AND STATES SHE CAN USE THE BEDPAN, DENIES PAIN, NO AMIODARONE STARTED BECAUSE RHYTHM WAS SR 98, IV IN THE RAC PATENT, OPTIFOAM TO THE RFA, ABRASION,SCRATCHES AND BRUISES TO LINSEY SHINS, LUNGS CLEAR WITH O2 BY 2L N/C, ABD WITH HYPERACTIVE BOWEL SOUNDS AND FIRM AND ROUND, CONTINUE TO MONITOR
--- NOTE | 2019-01-14 12:20 | NUR ---
Patient transferred to [facility] bed 261. Reported to GILMA England.
--- NOTE | 2019-01-14 12:40 | NUR ---
DR DIETZ IN TO SEE THE PATIENT AND ORDERED US OF THE ABD
--- NOTE | 2019-01-14 13:30 | NUR ---
REMINDED PATIETN WHERE SHE IS AND THAT SHE HAS TO STAY IN THE BED, SLIGHTLY CONFUSED,
[2019-01-14] MEDS: FOLIC ACID 1 MG, MULTIPLE VITAMIN 10 ML, MAGNESIUM SULF SDV 50% 8 MEQ, THIAMINE INJ 100... INJ SCH ×5 (14:15)
--- NOTE | 2019-01-14 14:45 | NUR ---
PLACED ON THE BEDPAN AND URINATED, LINEN CHANGED
[2019-01-14] MEDS ORDERED: ASPirin-EC 81 mg tab PO ONE (15:15)
--- NOTE | 2019-01-14 15:26 | NUR ---
ECHO BEING DONE
--- NOTE | 2019-01-14 15:41 | NUR ---
ECHO FINISHED AND PATIENT TOLERATED, LYING IN BED WITH EYES CLOSED
[2019-01-14 15:52] VITALS: BP 106/72
--- NOTE | 2019-01-14 15:53 | NUR ---
REMOVED O2, PATIENT O2 SAT 95% ON R/A
--- NOTE | 2019-01-14 17:00 | NUR ---
LYING IN BED NO COMPLAINTS, PLAYING WITH HER CELL PHONE
--- NOTE | 2019-01-14 18:45 | NUR ---
PATIENT WENT INTO AFIB WITH RVR, PAGED THE HOSPITALIST TO NOTIFY HIM EKG DONE
--- NOTE | 2019-01-14 18:55 | NUR ---
RECEIVED ORDERS FROM DR KOEHLER TO START THE AMIODARONE
--- NOTE | 2019-01-14 19:16 | NUR ---
New IV placed, 20G left wrist, patent, clean, dry, and intact. Amiodarone bolus started on left wrist 20G. vital signs HR-180, B/P- 107/71, RR-20, and saturation 95% on room air.
--- NOTE | 2019-01-14 19:40 | NUR ---
REPORT GIVEN , PATIENT LYING IN BED STILL HAS SOME CONFUSION AT TIMES, AMIODARONE DRIP RUNNING BY THE IV PUMP,WILL CONTINUE TO MONITOR AND GIVE REPORT TO THE NEXT SHIFT
[2019-01-14 19:50] VITALS: BP 115/85
[2019-01-14] MEDS: ATORVASTATIN 20 MG TAB PO SCH (22:57)
[2019-01-14] MEDS: METOPROLOL TARTRATE 25 MG TAB PO SCH (22:59)
[2019-01-15] VITALS (7 sets, daily range): BP systolic 109–123; BP diastolic 67–85
--- NOTE | 2019-01-15 01:23 | NUR ---
Pt remains stable. Resting in bed. Amiodarone drip decreased to 0.5mg per protocol. Pt SR 96 at this time.
--- NOTE | 2019-01-15 05:00 | NUR ---
Pt stable and in SR but noted to have labored breathing. O2 sat WNL. Pt seems anxious. Librium given. Pt states she has taken it before. Will continue to monitor.
[2019-01-15] MEDS: chlordiazePOXIDE HCL 25 MG CAP PO PRN (05:17)
[2019-01-15 06:26] LABS: Potassium 3.7 mmol/L (3.5-5.1)
[2019-01-15 06:37] LABS: Albumin 2.2 g/dL (3.4-5.0); BUN/Creatinine Ratio 3.6; Bilirubin, Total 3.4 mg/dL (0.2-1.0); Calcium 6.4 mg/dL (8.5-10.1); Total Protein 6.6 g/dL (6.4-8.2)
--- NOTE | 2019-01-15 06:41 | NUR ---
Pt resting comfortably at this time. No labored breathing noted. When awake she keeps stating she wants to go home to be with her friends. RN has tried to get her to understand she is very weak and would not be able to care for herself and her friends would not be able to care for her in this condition either. Pt verbalized understanding but the next time she woke she again stated she wants to go home. Will continue to monitor.
--- NOTE | 2019-01-15 07:30 | NUR ---
RECEIVED PATIENT SEMI FOWLERS IN THE BED, A/O TIMES 3, ABLE TO FOLLOW COMMANDS , BUT FORGETFUL, VOICE A LITTLE GARBLED, AMIODARONE DRIP INFUSING INTO THE LEFT WRIST 20G BY THE IV PUMP, RAC 20G SALINE LOCK FLUSHED AND PATENT, USES THE BEDPAN, O2 AT 2L BY N/C
--- NOTE | 2019-01-15 08:30 | NUR ---
ATE A FEW BITES OF BREAKFAST
[2019-01-15] MEDS: cefTRIAXone 1GM/50ML D5W 50 ML IV SCH (08:58)
--- NOTE | 2019-01-15 09:25 | NUR ---
DR STORY IN TO SEE THE PATIENT, AND STATD SHE WOULD BE BACK WITH DR AMOS
--- NOTE | 2019-01-15 09:35 | NUR ---
DR FERNANDEZ IN TO SEE THE PATIENT
[2019-01-15] MEDS: METOPROLOL TARTRATE 25 MG TAB PO SCH ×2 (10:07→21:57)
[2019-01-15] MEDS: FOLIC ACID 1 MG TAB PO SCH (10:07)
[2019-01-15] MEDS: ASPirin-EC 81 mg tab PO SCH (10:07)
[2019-01-15] MEDS: PANTOPRAZOLE 40 MG TAB PO SCH (10:08)
[2019-01-15] MEDS: MULTIPLE VITAMIN TAB PO SCH (10:08)
--- NOTE | 2019-01-15 10:30 | NUR ---
DR AMOS IN TO SEE THE PATIENT AND ORDERED NEW TEST
[2019-01-15] MEDS ORDERED: AMIODARONE HCL 200 MG TAB PO ONE (11:00)
--- NOTE | 2019-01-15 11:06 | NUR ---
AMIODARONE PO STARTED
--- NOTE | 2019-01-15 11:50 | NUR ---
PT NANCY WORKING WITH THE PATIENT BUT HR WENT UP TO THE 150'S, SO HE HAD TO STOP
[2019-01-15] MEDS: FOLIC ACID 1 MG, MULTIPLE VITAMIN 10 ML, MAGNESIUM SULF SDV 50% 8 MEQ, THIAMINE INJ 100... INJ SCH ×5 (12:20)
--- NOTE | 2019-01-15 12:30 | NUR ---
DIDN'T EAT ANY LUNCH
[2019-01-15] MEDS: ALBUTEROL SULF 2.5 MG/0.5ML(0.5%) NEB SOLN NEB PRN (12:47)
--- NOTE | 2019-01-15 12:47 | NUR ---
BREATHING TREATMENT BEING GIVEN
--- NOTE | 2019-01-15 13:03 | NUR ---
FRIENDS IN TO VISIT WITH THE PATIENT
--- NOTE | 2019-01-15 13:10 | NUR ---
EXPLAIN MEDICATIONS TO THE PATIENT REGARDING THE DOSAGE, USAGE AND THE SIDE EFFECTS, VERBALIZED UNDERSTANDING AND MEDS TAKEN ORDERED Addendum: 01/15/19 at 1319 by Cookie Ramirez RN CHANGE TIME TO 1010
--- NOTE | 2019-01-15 13:19 | NUR ---
PATIENT SET UP A PASSWORD FOR THE FRIEND BEATRIZ
--- NOTE | 2019-01-15 14:00 | NUR ---
WATCHING TV, NO COMPLAINTS
--- NOTE | 2019-01-15 15:00 | NUR ---
dr baum in to see the patient but states no treatment
--- NOTE | 2019-01-15 16:00 | NUR ---
WATCHING TV, NO COMPLAINTS, FORGETFUL
--- NOTE | 2019-01-15 16:30 | NUR ---
amiodarone drip stopped patient is in sr to sa
[2019-01-15] MEDS ORDERED: IOHEXOL 350 MG/ML 100ML IJ ONE ×2 (17:06→17:07)
--- NOTE | 2019-01-15 17:20 | NUR ---
TO CT SCAN BY THE BED
--- NOTE | 2019-01-15 17:40 | NUR ---
BACK FROM THE CAT SCN TOLERATED PROCEDURE WELL
--- NOTE | 2019-01-15 17:50 | NUR ---
IV TO THE RAC REDRESSED DUE TO LEAKING, IV IN THE LEFT WRIST INFILTRATED REMOVED INTACT, SMALL AMOUNT OF SWELLING TO THE LFA ARM,
--- NOTE | 2019-01-15 18:00 | NUR ---
ATTEMPTED TO START IV IN THE RT ARM BUT WOULD NOT THREAD
--- NOTE | 2019-01-15 18:18 | NUR ---
LYING IN BED, WITH YES CLOSED, ASKING FOR WATER INFORMED SHE WAS ON FLUID RESTRICTION AND SHE WILL HAVE TO WAIT FOR DINNER, A/O BUT CONFUSED, IV FLUIDS INFUSING INTO THE RAC BY THE IV PUMP, USES THE BEDPAN, O2 AT 2L BY N/C, NO COMPLAINS TO F PAIN OR SOB, WILL CONTINUE TO MONITOR AND GIVE REPORT OT THE NEXT SHIFT
--- NOTE | 2019-01-15 19:45 | NUR ---
Opening Shift Note Assumed care of patient, awake and alert to self only. No S/S of distress/SOB. Complete physical assessment done: see interventions. Fall precautions initiated.
[2019-01-15] MEDS: AMIODARONE HCL 200 MG TAB PO SCH (21:55)
[2019-01-15] MEDS: ATORVASTATIN 20 MG TAB PO SCH (21:55)
--- NOTE | 2019-01-15 22:35 | NUR ---
IV insertion IV access obtained, via clean sterile technique by inserting 20 gauge catheter at LEFT HAND and left AC after 3 attemptS.IV secured properly. No trauma to site. Patient tolerated well.
--- NOTE | 2019-01-15 22:58 | NUR ---
PM CARE COMPLETE BED BATH PROVIDED USING WARM WASH CLOTHS. PARTIAL LINEN CHANGE DONE, NEW GOWN PLACED ON PATIENT. REPOSITIONED IN BED FOR COMFORT. NOTED: REDNESS TO PERINEAL AREA, MULTIPLE ABRASIONS NOTED TO RIGHT UPPER ARM AND LOWER EXTREMITIES. CONTINUE TO MONITOR. PATIENT CONTINUES TO BE ALERT TO SELF ONLY, BED ALARM PLACED FOR PATIENT SAFETY.
[2019-01-16] VITALS (14 sets, daily range): BP systolic 80–131; BP diastolic 52–83
[2019-01-16] MEDS: chlordiazePOXIDE HCL 25 MG CAP PO PRN ×2 (00:37→13:38)
--- NOTE | 2019-01-16 03:14 | NUR ---
PT SEEN SLEEPING ON 5L NC, BS CLEAR AND DIMINISHED, SPO2 94%. PRN NEB TX NOT GIVEN AT THIS TIME.
--- NOTE | 2019-01-16 04:15 | NUR ---
HYPOTHERMIC UNABLE TO READ ORAL AND AXILLARY TEMPERATURES, RECTAL TEMPERATURE DONE SHOWS 95.7F PATIENT NOW WITH A MAMIE HUGGER. CONTINUE TO MONITOR.
--- NOTE | 2019-01-16 04:25 | NUR ---
Mercer catheter insertion Patient assessed and determined to be in need of mercer catheter, has not voided since beginning of shift. Order obtained from MD. Patient educated on catheter and reason for insertion. All questions answered. Mercer catheter 16 gauge [place]an inserted with clean sterile technique. Patient tolerated well.
--- NOTE | 2019-01-16 04:27 | NUR ---
SPOKE WITH NESTOR ROBERSON SUPERVISOR PRODUCTION MANAGING REGARDING 50CC OF URINE OUTPUT FROM PATEL AND BNP OF 1529 FROM [facility] ORDER FOR 40MG IV TIMES ONE READ BACK AND VERIFIED.
[2019-01-16] MEDS ORDERED: FUROSEMIDE 40 MG/4 ML VIAL IV ONE (04:30)
[2019-01-16] MEDS ORDERED: FUROSEMIDE 40 MG/4 ML VIAL ONE (04:35)
[2019-01-16 05:35] LABS: Basophils # (auto) 0 uL; Basophils % (auto) 0.3 % (0.0-2.0); Eosinophils # (auto) 0 uL; Eosinophils % (auto) 0.1 % (0.0-7.0); Hematocrit 34.9 % (36.0-46.0); Lymphocytes # (auto) 0.9 uL; Lymphocytes % (auto) 8.6 % (10.0-50.0); Monocytes # (auto) 0.5 uL; Monocytes % (auto) 5.2 % (0.0-12.0); Neutrophils # (auto) 8.9 uL; Neutrophils % (auto) 85.8 % (37.0-80.0); Red Blood Cells 3.03 10^6/uL (4.0-5.20)
[2019-01-16 05:38] LABS: Hemoglobin 11.4 g/dL (12.2-16.2); Mean Corpuscular Hemoglobin 37.7 pg (28.0-32.0); Mean Corpuscular Hgb Conc. 32.7 g/dL (32.0-36.0); Mean Corpuscular Volume 115.2 fL (80.0-100.0); Nucleated Red Blood Cells % 0.6 %; Platelet Count (auto) 195 10^3/uL (140-450); Red Cell Distribution Width 15.2 % (11.8-14.3); White Blood Cell 10.4 10^3/uL (4.4-10.8)
[2019-01-16 06:05] LABS: Albumin 2.1 g/dL (3.4-5.0); Calcium 6.2 mg/dL (8.5-10.1); Potassium 4.3 mmol/L (3.5-5.1)
[2019-01-16 06:08] LABS: BUN/Creatinine Ratio 3.8
[2019-01-16 06:10] LABS: Bilirubin, Total 3.2 mg/dL (0.2-1.0); Total Protein 6.5 g/dL (6.4-8.2)
--- NOTE | 2019-01-16 06:46 | NUR ---
TEMP RECHECK: 96.5 RECTAL UNABLE TO GET ORAL AND AXILLARY TEMP PATIENT CONTINUES TO BE ON MAMIE HUGGER
--- NOTE | 2019-01-16 07:45 | NUR ---
Opening Shift Note Assumed care of patient, awake and oriented x3, re-oriented to time. No S/S of distress/SOB or pain. Unable to obtain patient's temperature orally, 96.6 axillary, bear hugger on patient, set at 44 degree centigrade. See interventions for complete assessment. Bed locked on low position, side rails up x2, bed alarms on at all times, call zelaya within reach, instructed on POC and to call for assist PRN, will continue to monitor for changes Q1hr and PRN.
--- NOTE | 2019-01-16 08:30 | NUR ---
Patient refusing Cardiolyte Stress Test at this time, states "I don't want to do it, I already done that couple of months ago, Chemical Stress Test." Plan to obtain report from [facility].
--- NOTE | 2019-01-16 08:32 | NUR ---
Stress Test Update pt refusing stress test at this time. States she had a chemically induced stress test at [facility]. Primary RN notified in order to get release of records.
--- NOTE | 2019-01-16 09:25 | NUR ---
Carson PT at bedside, patient refusing to get out of bed at this time. Patient states "Not today, I'm hurting."
[2019-01-16] MEDS: METOPROLOL TARTRATE 25 MG TAB PO SCH ×2 (09:35→21:26)
[2019-01-16] MEDS: FOLIC ACID 1 MG TAB PO SCH (09:36)
[2019-01-16] MEDS: cefTRIAXone 1GM/50ML D5W 50 ML IV SCH (09:36)
[2019-01-16] MEDS: PANTOPRAZOLE 40 MG TAB PO SCH (09:37)
[2019-01-16] MEDS: MULTIPLE VITAMIN TAB PO SCH (09:37)
[2019-01-16] MEDS: AMIODARONE HCL 200 MG TAB PO SCH ×2 (09:37→21:27)
[2019-01-16] MEDS: ASPirin-EC 81 mg tab PO SCH (09:37)
--- NOTE | 2019-01-16 11:12 | NUR ---
PT Patient refused OOB activities with c/o not feeling better. GILMA Arguelles was made aware of pt's refusal. Addendum: 01/16/19 at 1113 by GRECIA VALADEZ PTT Amended: Links added.
--- NOTE | 2019-01-16 11:37 | NUR ---
NEDA Rizvi at bedside, updated on patient's status. Patient seen and examined. No new orders at this time.
--- NOTE | 2019-01-16 11:40 | NUR ---
Dr Colon at bedside, updated on patient's status. Patient seen and examined. Informed of 1529.60 BNP. Received verbal order to start patient on Furosemide IV and Potassium PO. Orders read back and verified. Will carry out.
[2019-01-16] MEDS ORDERED: ACETAMINOPHEN 325 MG TAB PO PRN (12:00)
--- NOTE | 2019-01-16 12:25 | NUR ---
NUTRITION ASSESSMENT NOTES Please refer to link notes of nutrition screen form filed under the intervention section of the plan of care for further details. Est. Needs: 1200 kcal to 1450 kcal (25-30 kcal/kgBW), 48 gms to 58 gms pro (1.0-1.2 gms/kgBW). Will continue to monitor pertinent labs and reassess nutrient need prn Thank you. Addendum: 01/16/19 at [address] Amended: Links added.
--- NOTE | 2019-01-16 12:29 | NUR ---
Pt is an alert and oriented female that resides alone in her own home. Per pt she has no family or children but does have a good friend , Karla, that can provide some help if needed. Discussed with pt issues regarding alcohol prior to hospitalization. Pt states she has no problems with over using alcohol despite the ER report. Pt also states she has no need for additional help at home and declined any caregiver resources. Pt states she has no dme and her friend, Karla, will provide transport upon discharge. Addendum: 01/16/19 at 1236 by [employer]ROSELIA TILLMAN Amended: Links added. Addendum: 01/16/19 at 1236 by [employer]ER SS Amended: Links added.
[2019-01-16] MEDS: FOLIC ACID 1 MG, MULTIPLE VITAMIN 10 ML, MAGNESIUM SULF SDV 50% 8 MEQ, THIAMINE INJ 100... INJ SCH ×5 (12:45)
--- NOTE | 2019-01-16 12:50 | NUR ---
Faxed Authorization for use of Health Information to [facility]. Received call from Matti of [facility] informing that patient's last visit is in 2007 and Medical records has been destroyed. Will inform Cardiology.
--- NOTE | 2019-01-16 13:25 | NUR ---
IV removal Came back from lunch. LT AC IV puffy, discotinued with sterile technique, catheter fully intact. Pressure dressing applied to site. Patient tolerated procedure well.
[2019-01-16] MEDS: HYDROcodone-ACET 5/325MG TAB PO PRN (13:38)
--- NOTE | 2019-01-16 16:35 | NUR ---
Paged Dr Colon and called back, updated on patient's status. Informed of patient's low urine output and decreasing BP. Received telephone order for Nephro consult and Levophed if ok with Cardiology. Telephone orders read back and verified. Will carry out.
--- NOTE | 2019-01-16 16:47 | NUR ---
Paged NEDA Rizvi and called back, updated on patient's status. Informed of low urine output and low BP. Will come and see patient.
--- NOTE | 2019-01-16 16:53 | NUR ---
NEDA Rizvi at bedside, updated on patient's status. Patient seen and examined. No new orders orders at this time.
[2019-01-16] MEDS: FUROSEMIDE 40 MG/4 ML VIAL IV SCH (17:33)
--- NOTE | 2019-01-16 18:35 | NUR ---
RT NOTE: PT ON 3LPM NC WITH NO DISTRESS NOTED SPO2 99%, HR 71, RR 18. BS DECREASED AT THIS TIME. NO TX INDICATED.
--- NOTE | 2019-01-16 19:35 | NUR ---
Opening Shift Note Assumed care of patient, awake and alert and oriented x3, drinking milk. Patient mentation has improved since last night. Currently no complaints of pain and no s/s of distress or SOB. Patient oxygen saturation 100% on 4L NC, titrated to 2L NC and continues to be at 100%. Complete physical assessment done at this time: see interventions. Instructed patient on POC and reoriented to call light. Will continue to monitor frequently.
--- NOTE | 2019-01-16 21:15 | NUR ---
IV insertion IV access obtained, via clean sterile technique by inserting 20 gauge catheter at right hand after 1 attempt. IV secured properly. No trauma to site. Patient tolerated well.
[2019-01-16] MEDS: ATORVASTATIN 20 MG TAB PO SCH (21:26)
--- NOTE | 2019-01-17 00:06 | NUR ---
CURRENT STATUS PATIENT RESTING IN BED WITH EYES CLOSED AND NO S/S OF DISTRESS OR SOB. ON 2L NC WITH POX 100%. CALL LIGHT WITHIN EASY REACH. WILL CONTINUE TO MONITOR.
--- NOTE | 2019-01-17 00:44 | NUR ---
PATIENT PLACED ON RA POX 99% RR 22, NO SIGNS OF RESPIRATORY DISTRESS OR SOB. CONTINUE MONITORING.
[2019-01-17 04:00] VITALS: BP 140/74
--- NOTE | 2019-01-17 04:35 | NUR ---
AM CARE COMPLETE BED BATH PROVIDED USING WARM WASH CLOTHS, DARIEL AREA AND PATEL CARE DONE. SKIN INTEGRITY REASSESSED: NO NEW CHANGES, SACRUM REMAINS INTACT. PARTIAL LINEN CHANGE DONE, NEW GOWN PLACED ON PATIENT. REPOSITIONED IN BED FOR COMFORT. CALL LIGHT HANDED TO PATIENT AND INSTRUCTED TO CALL PRN. PATIENT CONTINUES TO BE ON RA TOLERATING WELL POX 96%. WILL CONTINUE TO MONITOR.
[2019-01-17] MEDS: FUROSEMIDE 40 MG/4 ML VIAL IV SCH ×2 (05:44→17:50)
[2019-01-17] MEDS: ALBUTEROL SULF 2.5 MG/0.5ML(0.5%) NEB SOLN NEB PRN (06:10)
--- NOTE | 2019-01-17 06:56 | NUR ---
END OF SHIFT NOTE PATIENT AWAKE IN BED WATCHING TV WITH NO S/S OF DISTRESS OR SOB ON RA POX 99%. CALL LIGHT WITHIN EASY REACH. PATIENT REMAINED STABLE THROUGHOUT THE NIGHT WITH NO MAJOR EVENTS. WILL ENDORSE CARE TO DAY SHIFT.
--- NOTE | 2019-01-17 07:30 | NUR ---
RECEIVED PATIENT SITTING UP IN THE BED, A/ O TIMES 4, WHEN NAME WAS CALLED, O2 BY R/A, SALINE LOCK TO THE RT HAND 20G AND LEFT HAND 20GG BOTH PATENT AND INTACT, PATEL TO GRAVITY, SCD'S TO LINSEY LEGS, DENIES PAIN,
[2019-01-17 08:00] VITALS: BP 118/76
--- NOTE | 2019-01-17 08:30 | NUR ---
SPOKE TO CHIARA GONZALEZ AND EXPRESS TO CARMELLA THAT THE PATIENT MAY NOT HAVE THE CARDIOLITE BUT TO COME AND SEE IF SHE WILL DO IT FOR THEM
[2019-01-17] MEDS ORDERED: ADENOSINE 41 MG in GIVE UN-DILUTED 0 ML IV STA (08:44)
[2019-01-17] MEDS: cefTRIAXone 1GM/50ML D5W 50 ML IV SCH (08:51)
--- NOTE | 2019-01-17 08:54 | NUR ---
OUTSIDE SALES HERE TO INJECT THE PATIENT FOR THE STRESS TEST AND SHE REFUSED
--- NOTE | 2019-01-17 08:55 | NUR ---
SITTING UP IN THE BED ONLY DRANK SOME OF HER JUICE AND MILK REFUSED TO EAT, EXPRESS TO HER THAT SHE NEEDS TO EAT TO GET STRONGER, STATED I DON'T EAT AT HOME, SO I'M NOT GOING TO EAT HERE
--- NOTE | 2019-01-17 09:25 | NUR ---
DR FERNANDEZ IN TO SEE THE PATIENT
[2019-01-17] MEDS: FOLIC ACID 1 MG TAB PO SCH (10:15)
[2019-01-17] MEDS: ASPirin-EC 81 mg tab PO SCH (10:16)
[2019-01-17] MEDS: MULTIPLE VITAMIN TAB PO SCH (10:16)
[2019-01-17] MEDS: PANTOPRAZOLE 40 MG TAB PO SCH (10:16)
[2019-01-17] MEDS: POTASSIUM CHL 20 Meq TABLET PO SCH (10:16)
--- NOTE | 2019-01-17 10:20 | NUR ---
DR LANGLEY IN TO SEE THE PATIENT Addendum: 01/17/19 at 1211 by Cookie Ramirez RN CHANGE TIME TO 1120
--- NOTE | 2019-01-17 10:28 | NUR ---
PT Patient refused to be OOB or do PT during visit. GILMA Ibrahim was aware of pt's refusal. Addendum: 01/17/19 at 1029 by GRECIA VALADEZ PTT Amended: Links added.
[2019-01-17] MEDS: METOPROLOL TARTRATE 25 MG TAB PO SCH ×2 (10:30→22:07)
[2019-01-17] MEDS: AMIODARONE HCL 200 MG TAB PO SCH ×2 (10:31→22:03)
--- NOTE | 2019-01-17 10:38 | NUR ---
discussed medications with the patient regarding the dosage, usage, and side effects, verbalized that she understood and meds given as ordered
--- NOTE | 2019-01-17 11:00 | NUR ---
LYING IN BED WATCHING TV
[2019-01-17 12:00] VITALS: BP 119/81
--- NOTE | 2019-01-17 12:12 | NUR ---
ASSISTED TO THE BEDPAN AND HAD A BM
[2019-01-17] MEDS: FOLIC ACID 1 MG, MULTIPLE VITAMIN 10 ML, MAGNESIUM SULF SDV 50% 8 MEQ, THIAMINE INJ 100... INJ SCH ×5 (12:18)
--- NOTE | 2019-01-17 12:45 | NUR ---
SITTING UP IN BED EATING HER LUNCH, WHICH WAS VERY LITTLE
--- NOTE | 2019-01-17 13:30 | NUR ---
WATCHING TV, DENIES PAIN
--- NOTE | 2019-01-17 14:30 | NUR ---
NO COMPLAINTS WATCHING TV,
--- NOTE | 2019-01-17 15:15 | NUR ---
NO CHANGE WATCHING TV,
[2019-01-17 15:56] VITALS: BP 129/75
--- NOTE | 2019-01-17 16:13 | NUR ---
WATCHING TV,, NO COMPLAINTS
[2019-01-17 16:22] LABS: Urine Bacteria NONE SEEN /hpf (None Seen); Urine Blood TRACE /uL (Negative); Urine WBC 5 /hpf (0 - 5)
[2019-01-17 16:35] LABS: Protein, Urine 19.1 mg/dL (0.0-11.9)
--- NOTE | 2019-01-17 17:00 | NUR ---
SITTING UP IN BED, WATCHING TV, NO COMPLAINTS
--- NOTE | 2019-01-17 17:36 | NUR ---
Respiratory note: PT IN NO NEED OF MED NEB AT THIS TIME. NO SOB OR DISTRESS. BREATH SOUNDS ARE CLEAR BILATERALLY. PT KNOWS TO CALL NURSE IF SOB OCCURS.
--- NOTE | 2019-01-17 18:00 | NUR ---
PLACED ON THE BEDPAN AND HAD A LOOSE BM
--- NOTE | 2019-01-17 18:37 | NUR ---
SITTING UP IN THE BED, STATES SHE DOESN'T LIKE THE FOOD ITS SPICY, BUT SHE DIDN'T TASTE IT, A/O TIMES 4, BANANA BAG INFUSING INTO THE RT HAND BY THE IV PUMP, SALINE LOCK TO THE LEFT HAND PATENT AND INTACT, PATEL TO GRAVITY, O2 AT 2L BY N/C, NO COMPLAINTS OF PAIN, WILL CONTNINUE TO MONITOR AND GIVE REPORT TO THE NEXT SHIFT
--- NOTE | 2019-01-17 19:05 | NUR ---
OPENING NOTES ASSUMED CARE, AWAKE AND ORIENTED WITH NO SIGNS OF DISTRESS AND NO COMPLAINTS OF PAIN. RESPIRATIONS EVEN AND UNLABORED ON ROOM AIR, SPO2 97%, IV ACCESS PATENT AND INTACT, PATEL CATHETER DRAINING TO A CLEAR URINE, BED IN LOWEST POSITION WITH SIDE RAILS UP BED ALARM ON AND CALL LIGHT WITHIN EACH, WILL CONTINUE CARE.
[2019-01-17 19:45] VITALS: BP 112/75
[2019-01-17] MEDS: TEMAZEPAM 15 MG CAP PO PRN (22:03)
[2019-01-17] MEDS: ATORVASTATIN 20 MG TAB PO SCH (22:03)
[2019-01-17] MEDS: HYDROcodone-ACET 5/325MG TAB PO PRN (22:03)
[2019-01-18] VITALS (8 sets, daily range): BP systolic 83–137; BP diastolic 57–89
--- NOTE | 2019-01-18 05:15 | NUR ---
MORNING CARE DONE. REPOSITIONED FOR COMFORT.
[2019-01-18 05:48] LABS: Calcium 6.9 mg/dL (8.5-10.1); Eosinophils # (auto) 0.1 uL; Hemoglobin 10.7 g/dL (12.2-16.2); Neutrophils # (auto) 4.6 uL; Potassium 3.2 mmol/L (3.5-5.1)
[2019-01-18 05:50] LABS: Basophils # (auto) 0 uL; Basophils % (auto) 0.7 % (0.0-2.0); Eosinophils % (auto) 1.8 % (0.0-7.0); Hematocrit 31.4 % (36.0-46.0); Lymphocytes # (auto) 1.2 uL; Mean Corpuscular Hemoglobin 37.8 pg (28.0-32.0); Mean Corpuscular Hgb Conc. 34.1 g/dL (32.0-36.0); Mean Corpuscular Volume 110.7 fL (80.0-100.0); Monocytes # (auto) 0.9 uL; Monocytes % (auto) 12.6 % (0.0-12.0); Neutrophils % (auto) 66.9 % (37.0-80.0); Nucleated Red Blood Cells % 0.1 %; Platelet Count (auto) 183 10^3/uL (140-450); Red Blood Cells 2.83 10^6/uL (4.0-5.20); Red Cell Distribution Width 15.3 % (11.8-14.3); White Blood Cell 6.8 10^3/uL (4.4-10.8)
[2019-01-18 05:55] LABS: BUN/Creatinine Ratio 7.1; Bilirubin, Total 1.4 mg/dL (0.2-1.0); Phosphorus 2.4 mg/dL (2.5-4.90); Total Protein 5.7 g/dL (6.4-8.2); Uric Acid 4.4 mg/dL (2.6-6.0)
--- NOTE | 2019-01-18 05:59 | NUR ---
PAGED DR. FERNANDEZ FOR K 3.2, PER LINSEED OIL REFINER, Jovanna FERNANDEZ IS NOT HERE UNTIL 0900, WILL JUST PAGE FLORES RED. AWAITING CALL BACK
[2019-01-18] MEDS: FUROSEMIDE 40 MG/4 ML VIAL IV SCH (06:32)
--- NOTE | 2019-01-18 06:36 | NUR ---
RT NOTE: PRN BREATHING TX. NOT INDICATED AT THIS TIME. NO S/S OF RESPIRATORY DISTRESS NOTED. PT. HR 61, RR 14, POX 96% ON R/A. PT. ADVISED TO NOTIFY RN IF BREATHING TX. IS NEEDED.
--- NOTE | 2019-01-18 07:30 | NUR ---
RECEIVED PATIENT SEMI FOWLERS IN BED, O2 BY R/A, A/O TIMES 4, RT HAND SALINE LOCK 20 G FLUSHED AND PATENT AND LEFT HAND 20G SALINE LOCK FLUSHED AND PATENT, SCD'S TO LINSEY LEGS, PATEL TO GRAVITY, NO PAIN ASK IF SHE WAS GOING HOME TODAY AND EXPRESS THAT WE HAVE TO WAIT FOR THE DOCTOR TO COME AND SEE HER
--- NOTE | 2019-01-18 08:30 | NUR ---
SAT UP BED AND EXPRESS TO ME THAT SHE WAS GOING TO EAT HER BREAKFAST WHICH SHE IS DOING
[2019-01-18] MEDS: cefTRIAXone 1GM/50ML D5W 50 ML IV SCH (08:58)
--- NOTE | 2019-01-18 09:30 | NUR ---
DR FERNANDEZ IN TO SEE THE PATIENT AND STATED SHE CAN BE DISCHARGED TODAY
[2019-01-18] MEDS ORDERED: POTASSIUM CHL 20 Meq TABLET PO ONE (09:45)
[2019-01-18] MEDS: METOPROLOL TARTRATE 25 MG TAB PO SCH (10:00)
[2019-01-18] MEDS: ASPirin-EC 81 mg tab PO SCH (10:05)
[2019-01-18] MEDS: AMIODARONE HCL 200 MG TAB PO SCH (10:06)
[2019-01-18] MEDS: FOLIC ACID 1 MG TAB PO SCH (10:06)
[2019-01-18] MEDS: PANTOPRAZOLE 40 MG TAB PO SCH (10:06)
[2019-01-18] MEDS: POTASSIUM CHL 20 Meq TABLET PO SCH (10:06)
[2019-01-18] MEDS: MULTIPLE VITAMIN TAB PO SCH (10:06)
--- NOTE | 2019-01-18 10:10 | NUR ---
DISCUSSED MEDICATIONS WITH THE PATIENT REGARDING THE DOSAGE, USAGE AND THE SIDE EFFECTS, VERBALIZED THAT SHE UNDERSTOOD AND MEDS GIVEN ORDERED
--- NOTE | 2019-01-18 10:33 | NUR ---
WALKING WITH PT IN THE UNIT USING THE WALKER ABOUT 70FEET
--- NOTE | 2019-01-18 11:30 | NUR ---
LYING IN BED WITH EYES CLOSED APPEARS TO BE SLEEPING
[2019-01-18] MEDS: FOLIC ACID 1 MG, MULTIPLE VITAMIN 10 ML, MAGNESIUM SULF SDV 50% 8 MEQ, THIAMINE INJ 100... INJ SCH ×5 (12:00)
--- NOTE | 2019-01-18 12:25 | NUR ---
FAMILY HERE TO VISIT WITH THE PATIENT EXPRESS TO THEM THAT SHE IS GOING HOME, BUT SHE HAS TO URINATE FIRST
--- NOTE | 2019-01-18 12:47 | NUR ---
GAVE PRESCRIPTIONS TO THE (ZARA COTA TO GET FILLED FOR THE PATIENT
--- NOTE | 2019-01-18 14:07 | NUR ---
PATIENT SITTING UP IN THE BED, WITH EYES CLOSED , STATES SHE CAN'T URINATE YET
--- NOTE | 2019-01-18 14:45 | NUR ---
PATIENT URINATED ABOUT 150ML
--- NOTE | 2019-01-18 15:47 | NUR ---
DISCHARGE INSTRUCTIONS GIVEN TO THE PATIENT AND STATED SHE UNDERSTOOD, NOTIFIED THE DAUGHTER BEATRIZ THAT SHE WAS READY TO GO HOME, REMOVED 20G SALINE LOCK FROM THE LEFT HAND INTACT AND PATENT,
--- NOTE | 2019-01-18 16:50 | NUR ---
WAITING FOR THE FAMILY TO COME AND GET THE PATIENT
--- NOTE | 2019-01-18 17:28 | NUR ---
INSTRUCTIONS GIVEN TO THE FAMILY, REMOVED 20G SALINE LOCK FROM THE RT HAND INTACT, PATIENT AND FAMILY VERBALIZED THAT THEY HAVE ALL BELONGINGS INCLUDING CELL PHONE AND THE DINING ROOM ATTENDANT CAFETERIA, DISCHARGED BY W/C TO PRIVATE CAR
== END 2019-01-18 17:30 | disposition home or self-care (01) | DRG 432 ==
LOC: EDBD 14:46 → ER 14:50 → TELE 14:51 → TELE-EAST 01-13 00:16 → DOU IN ICU 01-14 12:11
PROVIDERS: ADMIT Nurse Practitioner Family; ATTEND Family Medicine
DX: K70.30 Alcoholic cirrhosis of liver without ascites (principal); N17.0 Acute kidney failure with tubular necrosis; I47.1 Supraventricular tachycardia; N39.0 Urinary tract infection, site not specified; E87.1 Hypo-osmolality and hyponatremia; E87.6 Hypokalemia; F10.229 Alcohol dependence with intoxication, unspecified; E86.0 Dehydration; E83.51 Hypocalcemia; I50.9 Heart failure, unspecified; I11.0 Hypertensive heart disease with heart failure; K21.9 Gastro-esophageal reflux disease without esophagitis; I48.91 Unspecified atrial fibrillation; R29.6 Repeated falls; F32.9 Major depressive disorder, single episode, unspecified; I71.2 Thoracic aortic aneurysm, without rupture; S50.811A Abrasion of right forearm, initial encounter; Y90.8 Blood alcohol level of 240 mg/100 ml or more; M25.562 Pain in left knee; F41.9 Anxiety disorder, unspecified; M19.90 Unspecified osteoarthritis, unspecified site; I95.9 Hypotension, unspecified; S81.802A Unspecified open wound, left lower leg, initial encounter; W01.0XXA Fall on same level from slipping, tripping and stumbling without subsequent striking against object, initial encounter; Y93.01 Activity, walking, marching and hiking; Y92.098 Other place in other non-institutional residence as the place of occurrence of the external cause; Z79.899 Other long term (current) drug therapy; Z82.49 Family history of ischemic heart disease and other diseases of the circulatory system; Z83.3 Family history of diabetes mellitus; Z90.49 Acquired absence of other specified parts of digestive tract; Z90.710 Acquired absence of both cervix and uterus; Y99.8 Other external cause status; Z71.41 Alcohol abuse counseling and surveillance of alcoholic
CPT/HCPCS: 36415; 70450; 71045; 71260; 73560; 74177; 76705; 80048; 80053; 80307; 80320; 81001; 82140; 82570; 82962; 83880; 84100; 84156; 84300; 84443; 84484; 84550; 85025; 87081; 87086; 90471; 90715; 93306; 94640; 94761; 96365; 96366; 96367; 96375; 97116; 97530; G0378; J0153; J0610; J0696; J2405; J3480; J7060

== ENCOUNTER 2019-04-07 18:28 | Emergency (ER) | payer BC ==
[~2019-04-07] VITALS: Ht 157.5 cm; Wt 54.4 kg
[2019-04-07 19:02] VITALS: BP 155/74
== END 2019-04-08 01:52 | disposition left against medical advice (07) ==
LOC: EDBD 18:28 → ER 18:28
DX: S01.81XA Laceration without foreign body of other part of head, initial encounter (principal); Z53.21 Procedure and treatment not carried out due to patient leaving prior to being seen by health care provider; X58.XXXA Exposure to other specified factors, initial encounter; Y93.89 Activity, other specified; Y99.8 Other external cause status; Y92.89 Other specified places as the place of occurrence of the external cause

== ENCOUNTER 2019-05-17 13:07 | Emergency (ER) | payer BC ==
[~2019-05-17] VITALS: Ht 149.9 cm; Wt 47.6 kg
[2019-05-17] MEDS ORDERED: SODIUM CHLORIDE 0.9% 1,000 ML IVB ONE (13:35)
[2019-05-17] MEDS ORDERED: LORazepam 2MG/ML-1ML VIAL IV ONE (13:45)
[2019-05-17 13:56] LABS: Basophils # (auto) 0 uL; Basophils % (auto) 0.5 % (0.0-2.0); Eosinophils # (auto) 0 uL; Hematocrit 39.6 % (36.0-46.0); Hemoglobin 13.4 g/dL (12.2-16.2); Lymphocytes # (auto) 1.2 uL; Lymphocytes % (auto) 11.7 % (10.0-50.0); Mean Corpuscular Hemoglobin 35.8 pg (28.0-32.0); Mean Corpuscular Hgb Conc. 33.9 g/dL (32.0-36.0); Mean Corpuscular Volume 105.5 fL (80.0-100.0); Monocytes # (auto) 0.6 uL; Monocytes % (auto) 5.7 % (0.0-12.0); Neutrophils # (auto) 8.2 uL; Neutrophils % (auto) 82.1 % (37.0-80.0); Nucleated Red Blood Cells % 0.3 %; Platelet Count (auto) 156 10^3/uL (140-450); Red Blood Cells 3.75 10^6/uL (4.0-5.20); Red Cell Distribution Width 19.2 % (11.8-14.3)
[2019-05-17 14:19] LABS: Albumin 3.9 g/dL (3.4-5.0); Calcium 7.4 mg/dL (8.5-10.1); Potassium 3.3 mmol/L (3.5-5.1)
[2019-05-17 14:23] LABS: BUN/Creatinine Ratio 8.8; Total Protein 8.2 g/dL (6.4-8.2)
[2019-05-17 16:15] VITALS: BP 109/75
== END 2019-05-17 16:31 | disposition home or self-care (01) ==
LOC: ER 13:07
DX: R56.9 Unspecified convulsions (principal); F10.230 Alcohol dependence with withdrawal, uncomplicated; I10 Essential (primary) hypertension; I48.91 Unspecified atrial fibrillation; Z90.49 Acquired absence of other specified parts of digestive tract; Z97.10 Presence of artificial limb (complete) (partial), unspecified
CPT/HCPCS: 36415; 70450; 80053; 80320; 84484; 85025; 94761; 96374; 99284; J2060

== ENCOUNTER 2020-06-11 09:58 | Inpatient (IN) | payer BC ==
[~2020-06-11] VITALS: Ht 149.9 cm; Wt 50.8 kg
[~2020-06-11 09:58] MED LIST changes: +EST0625T; +LEVO750T8 PO; +METO-5 PO; -METO25TA62 PO; +MULT-351 PO; +RIV20T PO; +SACC250C PO; +SACU1TAB PO
[2020-06-11 10:41] LABS: Urine Bacteria FEW /hpf (None Seen); Urine Blood Negative /uL (Negative); Urine Hyaline Cast MANY /lpf (0 - 2); Urine Mucus FEW (None Seen); Urine Specific Gravity 1.024 (1.001-1.035); Urine WBC 55 /hpf (0 - 5)
[2020-06-11 11:25] LABS: Basophils # (auto) 0.1 10 ^3/uL (0-0.2); Basophils % (auto) 0.6 % (0.0-2.0); Eosinophils # (auto) 0 10 ^3/uL (0-0.8); Eosinophils % (auto) 0.4 % (0.0-7.0); Hematocrit 42.2 % (36.0-46.0); Hemoglobin 14.2 g/dL (12.2-16.2); Lymphocytes % (auto) 10.7 % (10.0-50.0); Mean Corpuscular Hemoglobin 32.3 pg (28.0-32.0); Mean Corpuscular Hgb Conc. 33.6 g/dL (32.0-36.0); Mean Corpuscular Volume 96.3 fL (80.0-100.0); Monocytes # (auto) 0.3 10 ^3/uL (0-1.3); Monocytes % (auto) 3.3 % (0.0-12.0); Neutrophils # (auto) 8.3 10 ^3/uL (1.6-8.6); Nucleated Red Blood Cells % 0.1 %; Platelet Count (auto) 336 10^3/uL (140-450); Red Blood Cells 4.38 10^6/uL (4.0-5.20); White Blood Cell 9.7 10^3/uL (4.4-10.8)
[2020-06-11 11:40] LABS: Alanine Aminotransferase 22 U/L (13-56); Albumin 3.5 g/dL (3.4-5.0); Anion Gap 8 (5-15); Aspartate Aminotransferase 28 U/L (15-37); Blood Urea Nitrogen 15 mg/dL (7-18); Calcium 9.5 mg/dL (8.5-10.1); Carbon Dioxide 27 mmol/L (21-32); Chloride 99 mmol/L (98-107); Glucose 136 mg/dL (74-106); Potassium 4.3 mmol/L (3.5-5.1); Sodium 134 mmol/L (136-145)
[2020-06-11 11:44] LABS: Alkaline Phosphatase 96 U/L (45-117); BUN/Creatinine Ratio 12.7; Bilirubin, Total 0.3 mg/dL (0.2-1.0); GFR African American 60 mL/min; GFR Non-African American 49 mL/min; Total Protein 8.4 g/dL (6.4-8.2)
[2020-06-11 11:51] LABS: INR 0.98 (0.9-1.15); Partial Thromboplastin Time 22.6 sec (23.0-31.2)
[2020-06-11] MEDS ORDERED: cefTRIAXone 1GM/50ML D5W 50 ML IV ONE (13:15)
[2020-06-11] MEDS ORDERED: HYDROcodone-ACET 5/325MG TAB PO PRN (13:30)
[2020-06-11] MEDS ORDERED: SODIUM CHLORIDE 0.9% 1,000 ML IV SCH (13:30)
[2020-06-11] MEDS ORDERED: MORPHINE SULF INJ 2 MG/ML SYRINGE 1ML IV PRN ×3 (13:30)
[2020-06-11] MEDS ORDERED: ACETAMINOPHEN 500 MG TAB PO PRN (13:30)
[2020-06-11] MEDS ORDERED: ONDANSETRON HCL 4 MG/2 ML VIAL IV PRN (13:30)
[2020-06-11] MEDS ORDERED: NITROGLYCERIN 0.4 MG SL TAB SL PRN ×2 (13:30)
[2020-06-11] MEDS ORDERED: IOHEXOL 350 MG/ML 100ML IJ ONE (13:51)
--- NOTE | 2020-06-11 15:40 | NUR ---
Telemetry admit from NICOLLE VERDUGO admitted to Telemetry unit after SBAR received. Patient oriented to KALI ADHIKARI, RN primary RN, unit, room, bed, and unit policies regarding patient care and visiting hours. Patient now on continuous telemetry monitoring, tele box # 59 and telemetry reading on arrival to unit is SR. Patient weighed by bedscale and encouraged to call if they need something. All questions and concerns addressed, patient verbalized understanding.
[2020-06-11] MEDS ORDERED: DEXTROSE (50%) 50ML SYRG IV PRN (16:00)
[2020-06-11 17:00] VITALS: BP 116/79
[2020-06-11] MEDS: InsuLIN REG 1unit/0.01ml Soln (100units/ml) SC SCH ×2 (17:00→21:31)
[2020-06-11] MEDS: ACCU-CHEK COMFORT CURVE STRIP VI SCH ×2 (17:00→21:31)
--- NOTE | 2020-06-11 19:15 | NUR ---
assumed care, pt. awake, no c/o pain, no sob.
[2020-06-11] MEDS: METOPROLOL TARTRATE 50 MG TAB PO SCH (21:30)
[2020-06-11] MEDS: DOCUSATE SOD 100 MG CAP PO SCH (21:30)
[2020-06-11] MEDS: SACUBITRIL-VALSARTAN 24mg/26mg TAB PO SCH (21:30)
[2020-06-11] MEDS: PANTOPRAZOLE 40 MG TAB PO SCH (21:31)
[2020-06-11 21:50] VITALS: BP 114/70
[2020-06-12 05:10] VITALS: BP 113/72
[2020-06-12 06:04] LABS: Basophils # (auto) 0 10 ^3/uL (0-0.2); Basophils % (auto) 0.6 % (0.0-2.0); Eosinophils # (auto) 0.1 10 ^3/uL (0-0.8); Eosinophils % (auto) 1.6 % (0.0-7.0); Hematocrit 36.3 % (36.0-46.0); Hemoglobin 11.7 g/dL (12.2-16.2); Lymphocytes # (auto) 1.3 10 ^3/uL (0.4-5.4); Lymphocytes % (auto) 18.1 % (10.0-50.0); Mean Corpuscular Hemoglobin 30.9 pg (28.0-32.0); Mean Corpuscular Hgb Conc. 32.3 g/dL (32.0-36.0); Mean Corpuscular Volume 95.8 fL (80.0-100.0); Monocytes # (auto) 0.3 10 ^3/uL (0-1.3); Monocytes % (auto) 4.6 % (0.0-12.0); Neutrophils # (auto) 5.6 10 ^3/uL (1.6-8.6); Neutrophils % (auto) 75.1 % (37.0-80.0); Nucleated Red Blood Cells % 0.1 %; Platelet Count (auto) 263 10^3/uL (140-450); Red Blood Cells 3.78 10^6/uL (4.0-5.20); Red Cell Distribution Width 13.1 % (11.8-14.3); White Blood Cell 7.4 10^3/uL (4.4-10.8)
[2020-06-12] MEDS: InsuLIN REG 1unit/0.01ml Soln (100units/ml) SC SCH ×4 (06:09→21:36)
[2020-06-12] MEDS: ACCU-CHEK COMFORT CURVE STRIP VI SCH ×4 (06:10→21:37)
[2020-06-12 06:25] LABS: Calcium 8.2 mg/dL (8.5-10.1)
[2020-06-12 06:27] LABS: BUN/Creatinine Ratio 13.9
--- NOTE | 2020-06-12 08:00 | NUR ---
Opening Shift Note Assumed care of patient, awake and alert. No S/S of distress/SOB or pain. Instructed on POC and to call for assist PRN, will continue to monitor for changes Q1hr and PRN. Fall precautions in place per safety protocol.
[2020-06-12] MEDS: cefTRIAXone 1GM/50ML D5W 50 ML IV SCH (09:52)
[2020-06-12] MEDS: MULTIPLE VITAMINS W/ MINERALS TAB PO SCH (09:53)
[2020-06-12] MEDS: PANTOPRAZOLE 40 MG TAB PO SCH (09:53)
[2020-06-12] MEDS: SACUBITRIL-VALSARTAN 24mg/26mg TAB PO SCH ×2 (09:53→21:33)
[2020-06-12] MEDS: FAMOTIDINE 20 MG TAB PO SCH (09:53)
[2020-06-12] MEDS: METOPROLOL TARTRATE 50 MG TAB PO SCH (09:54)
[2020-06-12] MEDS: DOCUSATE SOD 100 MG CAP PO SCH ×2 (09:54→21:33)
[2020-06-12 10:00] VITALS: BP 119/93
[2020-06-12] MEDS ORDERED: ASPirin 81 mg TAB PO SCH (10:00)
--- NOTE | 2020-06-12 11:13 | NUR ---
Hospitalist MD Colon at bedside, aware of patient status. New orders received, will carry out new orders and cont to monitor patient.
[2020-06-12] MEDS ORDERED: Ensure HIGH Protein Chocolate 8oz Bottle PO SCH (12:00)
[2020-06-12 13:00] VITALS: BP 135/90
[2020-06-12 17:00] VITALS: BP 134/77
[2020-06-12 17:07] LABS: Free T3 2.37 pg/mL (2.3-4.2); Free T4 (Free Thyroxine) 0.9 ng/dL (0.89-1.76)
[2020-06-12] MEDS: Glucerna Carbsteady SHAKE Stawberry 8oz PO SCH (18:00)
--- NOTE | 2020-06-12 19:10 | NUR ---
assumed care, pt. awake, no c/o pain, advised pt. to npo after mn, pt. aware, no sob.
[2020-06-12] MEDS: METOPROLOL TARTRATE 25 MG TAB PO SCH (21:34)
[2020-06-12] MEDS: RIVAROXABAN 20 MG TAB PO SCH (21:36)
[2020-06-12 22:00] VITALS: BP 114/86
[2020-06-13 05:00] VITALS: BP 122/79
[2020-06-13] MEDS: InsuLIN REG 1unit/0.01ml Soln (100units/ml) SC SCH ×4 (06:05→23:30)
[2020-06-13] MEDS: ACCU-CHEK COMFORT CURVE STRIP VI SCH ×4 (06:06→23:30)
[2020-06-13] MEDS: Glucerna Carbsteady SHAKE Stawberry 8oz PO SCH ×3 (08:00→17:53)
[2020-06-13] MEDS ORDERED: DOBUTamine 1000MCG/ML 100 ML IV ONE (08:30)
[2020-06-13] MEDS: cefTRIAXone 1GM/50ML D5W 50 ML IV SCH (08:51)
[2020-06-13 09:00] VITALS: BP 110/84
--- NOTE | 2020-06-13 09:01 | NUR ---
entered room pt a/o x's 4. denies any dizziness at this time. resting in bed. reinforced npo status for stress echo, pt verbalized understanding. reports mild chronic lt shoulder pain from previous injury. denies any needs.
[2020-06-13] MEDS: FAMOTIDINE 20 MG TAB PO SCH (10:00)
[2020-06-13] MEDS: METOPROLOL TARTRATE 25 MG TAB PO SCH ×2 (10:00→23:30)
[2020-06-13] MEDS: MULTIPLE VITAMINS W/ MINERALS TAB PO SCH (10:00)
[2020-06-13] MEDS: DOCUSATE SOD 100 MG CAP PO SCH ×2 (10:00→23:30)
[2020-06-13] MEDS ORDERED: DOBUTamine 1000MCG/ML 250 ML IV ONE (10:23)
[2020-06-13 13:00] VITALS: BP 134/89
[2020-06-13] MEDS: SACUBITRIL-VALSARTAN 24mg/26mg TAB PO SCH ×2 (13:00→23:30)
--- NOTE | 2020-06-13 18:43 | NUR ---
pt eating et drinking well. no dizziness or lightheadedness. bg 120, no insulin needed at this time. voiding without difficulty, reports bm, ambulating independently. offers no other needs. .
[2020-06-13] MEDS: RIVAROXABAN 20 MG TAB PO SCH (23:30)
[2020-06-14 05:00] VITALS: BP 116/78
[2020-06-14] MEDS: ACCU-CHEK COMFORT CURVE STRIP VI SCH ×2 (06:28→13:17)
[2020-06-14] MEDS: InsuLIN REG 1unit/0.01ml Soln (100units/ml) SC SCH ×2 (06:28→12:42)
--- NOTE | 2020-06-14 07:10 | NUR ---
Closing Note Patient lying in bed, awake and alert. No s/s of distress. Care endorsed to dayshift RN.
--- NOTE | 2020-06-14 07:15 | NUR ---
Opening Shift Note Received report from night shift supervisor RN. Assumed care of patient, awake and alert. No S/S of distress/SOB or pain. Instructed on POC and to calling for assistance PRN, will continue to monitor for changes Q1hr and PRN. Bed in lowest position, top two side rails up. Call light within reach.
[2020-06-14] MEDS: cefTRIAXone 1GM/50ML D5W 50 ML IV SCH (08:39)
[2020-06-14] MEDS: Glucerna Carbsteady SHAKE Stawberry 8oz PO SCH ×2 (08:39→13:18)
[2020-06-14 09:02] VITALS: BP 106/77
[2020-06-14] MEDS: MULTIPLE VITAMINS W/ MINERALS TAB PO SCH (10:45)
[2020-06-14] MEDS: SACUBITRIL-VALSARTAN 24mg/26mg TAB PO SCH (10:46)
[2020-06-14] MEDS: DOCUSATE SOD 100 MG CAP PO SCH (10:46)
[2020-06-14] MEDS: METOPROLOL TARTRATE 25 MG TAB PO SCH (10:46)
[2020-06-14] MEDS: FAMOTIDINE 20 MG TAB PO SCH (10:49)
[2020-06-14 12:59] VITALS: BP 119/89
--- NOTE | 2020-06-14 13:39 | NUR ---
DISCHARGE DISCHARGE INSTRUCTIONS GIVEN TO PT, PT VERBALIZED UNDERSTANDING. PRESCRIPTION GIVEN TO PT. IV REMOVED, IV CATHETER INTACT. PT STABLE AT THIS TIME. ALL BELONGINGS SENT WITH PT.
== END 2020-06-14 13:40 | disposition home or self-care (01) | DRG 149 ==
LOC: ER 09:58 → EDBD 09:58 → TELE 09:59 → TELE-WESTW 15:40
PROVIDERS: ADMIT Hospitalist; ATTEND Family Medicine
DX: R42 Dizziness and giddiness (principal); I13.0 Hypertensive heart and chronic kidney disease with heart failure and stage 1 through stage 4 chronic kidney disease, or unspecified chronic kidney disease; I50.22 Chronic systolic (congestive) heart failure; N30.90 Cystitis, unspecified without hematuria; R55 Syncope and collapse; E03.9 Hypothyroidism, unspecified; I48.0 Paroxysmal atrial fibrillation; N18.30 Chronic kidney disease, stage 3 unspecified; E78.5 Hyperlipidemia, unspecified; E11.22 Type 2 diabetes mellitus with diabetic chronic kidney disease; K21.9 Gastro-esophageal reflux disease without esophagitis; H53.8 Other visual disturbances; I25.10 Atherosclerotic heart disease of native coronary artery without angina pectoris; J44.9 Chronic obstructive pulmonary disease, unspecified; Z79.01 Long term (current) use of anticoagulants; Z79.899 Other long term (current) drug therapy; Z82.49 Family history of ischemic heart disease and other diseases of the circulatory system; Z83.3 Family history of diabetes mellitus; Z90.710 Acquired absence of both cervix and uterus; Z72.89 Other problems related to lifestyle
CPT/HCPCS: 36415; 70450; 71045; 71275; 80048; 80053; 81001; 82962; 83735; 83880; 84439; 84443; 84481; 84484; 85025; 85379; 85610; 85730; 87086; 93005; 93017; 93350; 93886; 93970; 96365; G0378; J0696

== ENCOUNTER 2021-01-05 16:33 | Emergency (ER) | payer BC ==
[~2021-01-05] VITALS: Ht 149.9 cm; Wt 47.6 kg
[~2021-01-05 16:33] MED LIST changes: -METO-5 PO; +METO1TAB77 PO
[2021-01-05] MEDS ORDERED: SODIUM CHLORIDE 0.9% 1,000 ML IV ONE (17:00)
[2021-01-05 17:05] LABS: Eosinophils # (auto) 0.1 10 ^3/uL (0-0.8); Eosinophils % (auto) 1.5 % (0.0-7.0); Hemoglobin 12.4 g/dL (12.2-16.2); Lymphocytes # (auto) 1.9 10 ^3/uL (0.4-5.4); Nucleated Red Blood Cells % 0.1 %; White Blood Cell 4.8 10^3/uL (4.4-10.8)
[2021-01-05 17:06] LABS: Basophils # (auto) 0.3 10 ^3/uL (0-0.2); Basophils % (auto) 6.7 % (0.0-2.0); Lymphocytes % (auto) 40.4 % (10.0-50.0); Mean Corpuscular Hemoglobin 34.4 pg (28.0-32.0); Mean Corpuscular Hgb Conc. 34.4 g/dL (32.0-36.0); Mean Corpuscular Volume 99.9 fL (80.0-100.0); Monocytes # (auto) 0.3 10 ^3/uL (0-1.3); Monocytes % (auto) 7.3 % (0.0-12.0); Neutrophils # (auto) 2.1 10 ^3/uL (1.6-8.6); Neutrophils % (auto) 44.1 % (37.0-80.0); Red Blood Cells 3.61 10^6/uL (4.0-5.20); Red Cell Distribution Width 16.7 % (11.8-14.3)
[2021-01-05 17:29] LABS: Albumin 2.9 g/dL (3.4-5.0); Anion Gap 11 (5-15); BUN/Creatinine Ratio 8.3; Blood Urea Nitrogen 5 mg/dL (7-18); Calcium 6.2 mg/dL (8.5-10.1); Carbon Dioxide 25 mmol/L (21-32); Chloride 103 mmol/L (98-107); GFR African American 130 mL/min; GFR Non-African American 108 mL/min; Glucose 111 mg/dL (74-106); Potassium 3.3 mmol/L (3.5-5.1); Sodium 139 mmol/L (136-145)
[2021-01-05 17:34] LABS: Alanine Aminotransferase 14 U/L (13-56); Alkaline Phosphatase 98 U/L (45-117); Aspartate Aminotransferase 45 U/L (15-37); Bilirubin, Total 0.5 mg/dL (0.2-1.0); Total Protein 6.8 g/dL (6.4-8.2)
[2021-01-06] MEDS ORDERED: levETIRAcetam 500 MG/5ML INJ IV ONE (02:58)
[2021-01-06] MEDS ORDERED: THIAMINE 100mg/ml INJ (200mg/2ml VIAL) IV ONE (10:15)
[2021-01-06 11:17] VITALS: BP 123/60
[2021-01-06] MEDS ORDERED: LORazepam 2MG/ML-1ML VIAL IV ONE (11:45)
[2021-01-06] MEDS ORDERED: LORazepam 2MG/ML-1ML VIAL ONE (11:48)
== END 2021-01-06 12:16 | disposition home or self-care (01) ==
LOC: ER 16:33
DX: R07.89 Other chest pain (principal); F10.129 Alcohol abuse with intoxication, unspecified; I25.10 Atherosclerotic heart disease of native coronary artery without angina pectoris; K21.9 Gastro-esophageal reflux disease without esophagitis; I10 Essential (primary) hypertension; I25.2 Old myocardial infarction; Z90.49 Acquired absence of other specified parts of digestive tract; Z90.710 Acquired absence of both cervix and uterus; Z79.2 Long term (current) use of antibiotics; Z79.899 Other long term (current) drug therapy; Y90.8 Blood alcohol level of 240 mg/100 ml or more
CPT/HCPCS: 36415; 71045; 80053; 80320; 83880; 84484; 85025; 93005; 96365; 96375; 99285; J1953; J2060; J3411; J7060

== ENCOUNTER 2021-01-06 18:57 | Emergency (ER) | payer BC ==
[~2021-01-06] VITALS: Ht 149.9 cm; Wt 49.9 kg
[2021-01-06 19:42] LABS: Basophils # (auto) 0.2 10 ^3/uL (0-0.2); Eosinophils # (auto) 0.1 10 ^3/uL (0-0.8); Hemoglobin 10.7 g/dL (12.2-16.2); Monocytes # (auto) 0.4 10 ^3/uL (0-1.3); Monocytes % (auto) 6.2 % (0.0-12.0); Neutrophils # (auto) 3.9 10 ^3/uL (1.6-8.6)
[2021-01-06 19:44] LABS: Basophils % (auto) 3.5 % (0.0-2.0); Eosinophils % (auto) 1.2 % (0.0-7.0); Hematocrit 30.3 % (36.0-46.0); Lymphocytes # (auto) 1.2 10 ^3/uL (0.4-5.4); Lymphocytes % (auto) 21.4 % (10.0-50.0); Mean Corpuscular Hemoglobin 35.3 pg (28.0-32.0); Mean Corpuscular Hgb Conc. 35.3 g/dL (32.0-36.0); Mean Corpuscular Volume 100.1 fL (80.0-100.0); Neutrophils % (auto) 67.7 % (37.0-80.0); Platelet Count (auto) 151 10^3/uL (140-450); Red Blood Cells 3.03 10^6/uL (4.0-5.20); Red Cell Distribution Width 16.7 % (11.8-14.3); White Blood Cell 5.8 10^3/uL (4.4-10.8)
[2021-01-06] MEDS ORDERED: ONDANSETRON ODT 4 MG TAB PO ONE ×2 (19:45→20:00)
[2021-01-06 20:00] LABS: Albumin 2.8 g/dL (3.4-5.0); BUN/Creatinine Ratio 9.2; Potassium 3.3 mmol/L (3.5-5.1)
[2021-01-06 20:02] LABS: Bilirubin, Total 1.4 mg/dL (0.2-1.0); Total Protein 6.4 g/dL (6.4-8.2)
[2021-01-06 20:07] LABS: Calcium 6.2 mg/dL (8.5-10.1)
[2021-01-06 21:00] VITALS: BP 140/75
== END 2021-01-06 21:51 | disposition home or self-care (01) ==
LOC: ER 18:58
DX: R07.89 Other chest pain (principal); F10.10 Alcohol abuse, uncomplicated; R25.1 Tremor, unspecified; I25.10 Atherosclerotic heart disease of native coronary artery without angina pectoris; K21.9 Gastro-esophageal reflux disease without esophagitis; I10 Essential (primary) hypertension; I25.2 Old myocardial infarction; Z90.49 Acquired absence of other specified parts of digestive tract; Z90.710 Acquired absence of both cervix and uterus; Z79.899 Other long term (current) drug therapy; Y90.0 Blood alcohol level of less than 20 mg/100 ml
CPT/HCPCS: 36415; 80053; 80320; 85025; 99283; Q0162